=== PATIENT | male | born 1960 | race Caucasian/White ===

== ENCOUNTER 2019-09-10 07:51 | Inpatient (IN) | payer BC ==
[~2019-09-10] VITALS: Ht 182.9 cm; Wt 95.3 kg
--- OUTSIDE RECORDS SUMMARY | 2019-09-10 07:54 | XMS REPORT | Clinical Summary ---
Author Author [facility] Organization [place] [facility] Address Unknown Phone Unavailable Care Team Providers Care Director Broadcast Name Role Phone Johnny De León DO PCP [phone] Allergies No Known Allergies Medications End Date Status Medication Sig Dispensed Refills Start Date Active levothyroxine 175 mcg Take 175 mcg 0 capsule by mouth daily. Active Problems Not on file Encounters Care Team Description Date Type Specialty Wyatt Bob MD Hydronephrosis, unspecified hydronephros is type 01/08/2019 Hospital Radiology Encounter Wyatt Bob MD Hydronephrosis, unspecified hydronephros is type (Primary Dx) 01/01/2019 Office Visit Nephrology Rebecca Perdomo MA Abnormal kidney function (Primary Dx) 10/25/2018 Orders Only Nephrology after 09/09/2018 Family History Medical History Relation Name Comments Bladder Cancer Brother Bladder Cancer Father Hypertension Father Diabetes type II Mother Hypertension Mother Hypothyroidism Mother Diabetes type II Sister Relation Name Status Comments Brother Father Alive Mother Alive Sister Alive Social History Date Tobacco Use Types Packs/Day Years Used Never Smoker Smokeless Tobacco: Never Used Drinks/Week oz/Week Comments Alcohol Use Yes Alcohol Habits Answer Date Recorded How often do you have a drink containing alcohol? Monthly or less 01/01/2019 How many drinks containing alcohol do you have on No t asked a typical day when you are drinking? How often do you have six or more drinks on one Not asked occasion? Sex Assigned at Date Recorded Not on file Industry Job Start Date Occupation Not on file Not on file Not on file Travel End Travel History Travel Start No recent travel history available. Last Filed Vital Signs Reading Time Taken Comments Vital Sign 105/68 01/01/2019 3:15 PM CDT Blood Pressure 79 01/01/2019 3:15 PM CDT Pulse 36.6 C (97.8 F) 01/01/2019 3:15 PM CDT Temperature 16 01/01/2019 3:15 PM CDT Respiratory Rate 97% 01/01/2019 3:15 PM CDT Oxygen Saturation - - Inhaled Oxygen Concentration 96.6 kg (212 lb 14.4 oz) 01/01/2019 3:15 PM CDT Weight 181.6 cm (5' 11.5") 01/01/2019 3:15 PM CDT Height 29.28 01/01/2019 3:15 PM CDT Body Mass Index Plan of Treatment Health Maintenance Due Date Last Done Comments COLONOSCOPY SCREENING 2010 SHINGLES VACCINES (#1) 2010 INFLUENZA VACCINE 11/29/2019 Procedures Comments Procedure Name Priority Date/Time Associated Diag nosis US RENAL Routine 01/08/2019 Hydronephrosis, 7:06 PM CDT unspecified hydronephrosis type CBC WITH PLATELET AND Routine 12/26/2018 Abnormal kidney function DIFFERENTIAL 11:01 AM CDT MICROALBUMIN / CREATININE Routine 12/26/2018 Abno rmal kidney function URINE RATIO 11:01 AM CDT PROTEIN, URINE, RANDOM Routine 12/26/2018 Abnorma l kidney function 11:01 AM CDT URINALYSIS, COMPLETE, Routine 12/26/2018 Abnormal kidney function WITH REFLEX TO CULTURE 11:01 AM CDT PHOSPHORUS LEVEL Routine 12/26/2018 Abnormal kidn ey function 11:01 AM CDT MAGNESIUM LEVEL Routine 12/26/2018 Abnormal kidne y function 11:01 AM CDT BASIC METABOLIC PANEL Routine 12/26/2018 Abnormal kidney function 11:01 AM CDT after 09/09/2018 Results * US Renal (01/08/2019 7:06 PM CDT) Specimen Narrative Performed At EXAMINATION: US RENAL [facility] CLINICAL HISTORY: N13.30 Unspecified hydronephrosis, eval for R hydro COMPARISON: None. TECHNIQUE: Ultrasound evaluation of t he kidneys and bladder. IMPRESSION: 1.The right kidney demonstrates marked hydronephrosis. The right kidney measures 8.6 x 4.4 x 5.1 cm with cortical thinni ng. 2.Left kidney is normal in size and ech ogenicity. No left hydronephrosis. 3.No stones are seen. 4.Urinary bladder is grossly unremarkab le. [facility]-[id number] Procedure Note Hm Interface, Radiology Results Incoming - 01/08/2019 7:12 PM CDT EXAMINATION: US RENAL CLINICAL HISTORY: N13.30 Unspecified hydronephrosis, eval for R hydro COMPARISON: None. TECHNIQUE: Ultrasound evaluation of the kidneys and bladder. IMPRESSION: 1.The right kidney demonstrates marked h ydronephrosis. The right kidney measures 8.6 x 4.4 x 5.1 cm with cortical thinning. 2.Left kidney is normal in size and echo genicity. No left hydronephrosis. 3.No stones are seen. 4.Urinary bladder is grossly unremarkabl e. [facility]-[id number] Performing Organization Address [facility] [place] [place] Ph one Number [facility] [address] [place] [address] * URINALYSIS, COMPLETE, WITH REFLEX TO CULTURE (12/26/2018 11:01 AM CDT) Color, UA YELLOW YELLOW [facility] [place] Appearance CLEAR CLEAR [facility] [place] Specific 1.023 1.001 - 1.035 [facility] gravity, urine [facility] [place] pH, urine < OR = 5.0 5.0 - 8.0 [facility] [place] Glucose, urine NEGATIVE NEGATIVE [facility] [place] Bilirubin, UA NEGATIVE NEGATIVE [facility] [place] Ketones, UA NEGATIVE NEGATIVE [facility] [place] Occult blood, NEGATIVE NEGATIVE [facility] urine [facility] [place] Protein, UA NEGATIVE NEGATIVE [facility] [place] Nitrite, UA NEGATIVE NEGATIVE [facility] [place] Leukocyte NEGATIVE NEGATIVE [facility] esterase, UA [facility] [place] WBC, UA NONE SEEN < OR = 5 /HPF [facility] [place] RBC, UA NONE SEEN < OR = 2 /HPF [facility] [place] Squamous NONE SEEN < OR = 5 /HPF [facility] epithelial [facility]ST[facility] cells, UA [place] Bacteria, UA NONE SEEN NONE SEEN /HPF [facility] [place] Hyaline casts, NONE SEEN NONE SEEN /LPF [facility] UA [facility] [place] Reflex NO CULTURE INDICATED [facility] [place] Specimen Narrative Performed At FASTING:NO [facility] FASTING: NO Resulting Agency Comment Performing Organization Information: Site ID: [id number] Name: [facility] Address: [address] [place] [phone] Director: Martínez Barrett Performing Organization Address City/[facility] Ph one Number [facility] [address] [phone] * Microalbumin / creatinine urine ratio (12/26/2018 11:01 AM CDT) Pathologist [facility] Creatinine, 184 20 - 320 mg/dL [facility] urine, random [facility] [place] Microalbumin, 0.2 See Note: mg/dL [facility] urine Comment: DIAGNOSTICS Reference Range: [place] Reference Range Not established Microalbumin/cr 1 <30 mcg/mg creat [facility] eatinine ratio Comment: DIAGNOSTICS The ADA defines abnormalities GAINES in albumin excretion as follows: Category Result (mcg/mg creatinine) Normal <30 Microalbuminuria 30-299 Clinical albuminuria > OR = 300 The ADA recommends that at least two of three specimens collected within a 3-6 month period be abnormal before considering a patient to be within a diagnostic category. Specimen Urine Narrative Performed At FASTING:NO [facility] FASTING: NO Resulting Agency Comment Performing Organization Information: Site ID: [facility] Name: [facility] Address: [address] [place] [phone] Director: Martínez Barrett Performing Organization Address [facility] one Number [facility] [place] [phone] * Protein, urine, random (12/26/2018 11:01 AM CDT) [facility] Protein, urine 7 5 - 25 mg/dL [facility] random [facility] [place] Specimen Urine Narrative Performed At FASTING:NO [facility] FASTING: NO Resulting Agency Comment Performing Organization Information: Site ID: [facility] Name: [facility] Address: [address] [place] [phone] Director: Martínez Barrett Performing Organization Address [facility] [place] [place] Ph one Number [facility] [address] [phone] * CBC with platelet and differential (12/26/2018 11:01 AM CDT) Pathologist [facility] WBC 6.6 3.8 - 10.8 [facility] Thousand/uL [facility] [place] RBC 4.18 (L) 4.20 - 5.80 [facility] Million/uL [facility] [place] HGB 13.5 13.2 - 17.1 g/dL [facility] [place] HCT 40.0 38.5 - 50.0 % [facility] [place] MCV 95.7 80.0 - 100.0 fL [facility] [place] MCH 32.3 27.0 - 33.0 pg [facility] [place] MCHC 33.8 32.0 - 36.0 g/dL [facility] [place] RDW 13.0 11.0 - 15.0 % [facility] [place] Platelet count 252 140 - 400 [facility] Thousand/uL [facility] [place] MPV 9.6 7.5 - 12.5 fL [facility] [place] Neutrophils, 3,221 1,500 - 7,800 [facility] absolute cells/uL [facility] [place] Lymphocytes, 2,237 850 - 3,900 cells/uL [facility] absolute [facility] [place] Monocytes, 634 200 - 950 cells/uL [facility] absolute [facility] [place] Eosinophils, 475 15 - 500 cells/uL [facility] absolute [facility] [place] Basophils, 33 0 - 200 cells/uL [facility] absolute [facility] [place] Neutrophils 48.8 % [facility] [place] Lymphocytes 33.9 % [facility] [place] Monocytes 9.6 % [facility] [place] Eosinophils 7.2 % [facility] [place] Basophils + RC 0.5 % [facility] [place] Specimen Blood Narrative Performed At FASTING:NO [facility] FASTING: NO Resulting Agency Comment Performing Organization Information: Site ID: [id number] Name: [facility] Address: [address] [place] [phone] Director: Martínez Barrett Performing Organization Address [facility] [place] [place] Ph one Number [facility] [address] [phone] * Phosphorus level (12/26/2018 11:01 AM CDT) Phosphorus 3.5 2.5 - 4.5 mg/dL [facility] [place] Specimen Blood Narrative Performed At FASTING:NO [facility] FASTING: NO Resulting Agency Comment Performing Organization Information: Site ID: [id number] Name: [facility] Address: [address] [place] [phone] Director: Martínez Barrett Performing Organization Address [facility] [place] [place] Ph one Number [facility] [address] [phone] * Magnesium level (12/26/2018 11:01 AM CDT) Magnesium 1.9 1.5 - 2.5 mg/dL [facility] [place] Specimen Blood Narrative Performed At FASTING:NO [facility] FASTING: NO Resulting Agency Comment Performing Organization Information: Site ID: [id number] Name: [facility] Address: [address] [place] [phone] Director: Martínez Barrett Performing Organization Address [facility] one Number [facility] [place] [address] [place] [phone] * Basic metabolic panel (12/26/2018 11:01 AM CDT) [facility] Glucose 96 65 - 139 mg/dL [facility] Comment: DIAGNOSTICS Non-fasting [place] reference interval BUN 23 7 - 25 mg/dL [facility] [place] Creatinine 1.16 0.70 - 1.33 mg/dL [facility] Comment: DIAGNOSTICS For patients >49 years of age, [place] the reference limit for Creatinine is approximately 13% higher for people identified as -Croatian. EGFR Non-Afr. 69 > OR = 60 [facility] Croatian mL/min/1.73m2 [facility] [place] EGFR 80 > OR = 60 [facility] Croatian mL/min/1.73m2 [facility] BUN/creatinine NOT APPLICABLE 6 - 22 (calc) [facility] ratio [facility] [place] Sodium 137 135 - 146 mmol/L [facility] [place] Potassium 4.4 3.5 - 5.3 mmol/L [facility] [place] Chloride 102 98 - 110 mmol/L [facility] [place] CO2 28 20 - 32 mmol/L [facility] [place] Calcium 9.0 8.6 - 10.3 mg/dL [facility] [place] Specimen Blood Narrative Performed At FASTING:NO [facility] FASTING: NO Resulting Agency Comment Performing Organization Information: Site ID: [id number] Name: [facility] Address: [address] [place] [phone] Director: Martínez Barrett Performing Organization Address [facility] one Number [facility] [place] [address] [place] [phone] after 09/09/2018 Insurance Type Payer Benefit Subscriber ID Effective Phone Address Plan / Dates Group PPO BCBS BCBS xxxxxxxxxxxx [id number] CHOICE resent PPO/ROSENAD FRANK PPO Advance Directives For more information, please contact: [phone] 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
[2019-09-10] MEDS ORDERED: ONDANSETRON HCL INJ 2MG/ML 2ML 2 MG/ML VIAL IV STA (07:58)
[2019-09-10] MEDS ORDERED: SODIUM CHLORIDE 0.9% 1000ML 1,000 ML IV STA (07:58)
[2019-09-10] MEDS ORDERED: KETOROLAC TROMETHAMINE 30 MG/ML VIAL IV STA (07:58)
[2019-09-10 08:44] LABS: BASOPHILS # (AUTO) 0.1 (0.0-0.1); BASOPHILS % 0.3 % (0.0-1.0); EOSINOPHILS # (AUTO) 0.2 (0.0-0.4); EOSINOPHILS % 1.5 % (0.0-6.0); HEMATOCRIT 44.2 % (38.2-49.6); HEMOGLOBIN 14.6 g/dL (14.0-18.0); LYMPHOCYTES # (AUTO) 2.5 (1.0-3.2); LYMPHOCYTES % 16.6 % (18.0-39.1); MEAN CORPUSCULAR HEMOGLOBIN 31.5 pg (28-32); MEAN CORPUSCULAR VOLUME 95.5 fL (81-99); MONOCYTES # (AUTO) 1.7 (0.2-0.8); MONOCYTES % 11.1 % (4.4-11.3); NEUTROPHILS # (AUTO) 10.7 (2.1-6.9); NEUTROPHILS % 70.2 % (38.7-80.0); PLATELET COUNT 261 x10e3/uL (140-360); RED BLOOD COUNT 4.63 x10e6/uL (4.3-5.7); RED CELL DISTRIBUTION WIDTH 13.3 % (11.7-14.4)
[2019-09-10 09:02] LABS: INR 0.97; PROTHROMBIN TIME 13.5 seconds (11.9-14.5)
[2019-09-10 09:03] LABS: PARTIAL THROMBOPLASTIN TIME 32.4 seconds (23.8-35.5)
[2019-09-10 09:09] LABS: ALANINE AMINOTRANSFERASE 14 IU/L (0-55); ALBUMIN 3.6 g/dL (3.5-5.0); ALKALINE PHOSPHATASE 55 IU/L (40-150); ANION GAP 14.1 mmol/L (8-16); BLOOD UREA NITROGEN 14 mg/dL (7-26); BUN/CREATININE RATIO 13 (6-25); CALCIUM 8.6 mg/dL (8.4-10.2); CARBON DIOXIDE 26 mmol/L (22-29); CHLORIDE 101 mmol/L (98-107); CREATINE KINASE 84 IU/L (30-200); CREATININE, SERUM 1.11 mg/dL (0.72-1.25); EST GLOMERULAR FILTRATION RATE > 60 ML/MIN (60-); GLUCOSE 117 mg/dL (74-118); POTASSIUM 4.1 mmol/L (3.5-5.1); SODIUM 137 mmol/L (136-145)
[2019-09-10 09:25] LABS: BILIRUBIN,URINE NEGATIVE (NEGATIVE); CLARITY,URINE CLEAR (CLEAR); COLOR,URINE YELLOW (YELLOW); KETONES,URINE NEGATIVE (NEGATIVE); LEUKOCYTE ESTERASE ,URINE NEGATIVE (NEGATIVE); NITRITE,URINE POSITIVE (NEGATIVE); PROTEIN,URINE DIPSTICK NEGATIVE (NEGATIVE); URINE UROBILINOGEN 0.2 mg/dL (0.2 - 1)
[2019-09-10] MEDS ORDERED: SODIUM CHLORIDE 0.9% 50ML 50 ML ONE (09:27)
[2019-09-10] MEDS ORDERED: IOPAMIDOL 370 MG/ML 200 ML INFUS..BTL INJ ONE (09:28)
[2019-09-10 09:33] LABS: EOSINOPHILS % (MANUAL) 3 % (0-7); LYMPHOCYTES % (MANUAL) 13 % (19-48); MONOCYTES % (MANUAL) 6 % (3.4-9.0); NEUTROPHILS % (MANUAL) 72 % (40-74); PLATELET ESTIMATE ADEQUATE; PLATELET MORPHOLOGY COMMENT NORMAL; RBC MORPHOLOGY COMMENT NORMAL
[2019-09-10 09:38] LABS: BACTERIA,URINE FEW /HPF; EPITHELIAL CELLS,URINE RARE /LPF; RBC,URINE 0-5 /HPF (0-5); WBC,URINE (MAN) 0-5 /HPF (0-5)
--- NOTE | 2019-09-10 09:58 | Diagnostic Imaging Report ---
EXAMINATION: CHEST SINGLE (PORTABLE) INDICATION: Abdominal pain COMPARISON: None FINDINGS: LINES/TUBES:None LUNGS:The lungs are well-inflated. No focal consolidation or pulmonary edema. PLEURA:No pleural effusion or pneumothorax. MEDIASTINUM:The cardiomediastinal silhouette appears normal in size and shape. BONES/SOFT TISSUES:No acute osseous injury. ABDOMEN:No free air under the diaphragm. IMPRESSION: No focal pneumonia or pulmonary edema. Signed by: Jordan Melvin MD on 09/10/2019 9:54 AM
--- NOTE | 2019-09-10 10:35 | Diagnostic Imaging Report ---
EXAM: CT Abdomen and Pelvis WITH intravenous contrast INDICATION: Right lower quadrant abdominal pain COMPARISON: None. TECHNIQUE: Abdomen and pelvis were scanned utilizing a multidetector helical scanner from the lung base to the pubic symphysis after administration of IV contrast. Coronal and sagittal reformations were obtained. Routine protocol was performed. Scan was performed during portal venous phase. IV CONTRAST: 100mL of Isovue 370 ORAL CONTRAST: Water RADIATION DOSE: Total DLP: 608 mGy*cm Dose modulation, iterative reconstruction, and/or weight based adjustment of the mA/kV was utilized to reduce the radiation dose to as low as reasonably achievable. FINDINGS: LOWER THORAX: Normal. HEPATOBILIARY: No focal liver lesions. No biliary ductal dilation. Unremarkable gallbladder. SPLEEN: No splenomegaly. PANCREAS: No focal masses or ductal dilatation. ADRENALS: No adrenal nodules. KIDNEYS/URETERS: Severe chronic right hydronephrosis and proximal hydroureter with associated severe cortical thinning. Minimal left hydronephrosis. No urinary calculi. PELVIC ORGANS/BLADDER: Unremarkable. PERITONEUM / RETROPERITONEUM: No free air or fluid. LYMPH NODES: No lymphadenopathy. VESSELS: Scattered atherosclerotic calcifications of the nonaneurysmal abdominal aorta and major branches. GI TRACT: Dilated appendix measures up to 1.4 cm with a distal appendicolith. Substantial right lower quadrant periappendiceal fat stranding and small amount of free fluid. No well-formed drainable abscess. BONES AND SOFT TISSUES: No acute osseous injury. No suspicious lytic or blastic lesions. IMPRESSION: Acute appendicitis. Severe chronic right hydronephrosis with associated severe cortical thinning. Signed by: Jordan Melvin MD on 09/10/2019 10:29 AM
--- NOTE | 2019-09-10 10:42 | Emergency Department Note ---
History of Present Illnes History of Present Illness Chief Complaint: Abdominal Complaints Stated Complaint: STOMACH PAIN RIGHT SIDE History of Present Illness This is a 59 year old male presents with RLQ abd pain x 2 days. Historian: Patient Chief Digital Media Officer Required: No Onset (how long ago): day(s) (2) Location: RLQ Radiation: non-radiation Severity: severe Onset quality: gradual Timing of current episode: constant Progression: worsening Chronicity: new Relieving factors: none Exacerbating factors: movement Associated symptoms: fever/chills (100.4 at home this am), nausea/vomiting (nausea only) Treatments prior to arrival: none Past Medical/Family History Physician Review I have reviewed the patient's past medical and family history. Any updates have been documented here. Past Medical History Recent Fever: Yes Clinical Suspicion of Infectio: No New/Unexplained Change in Ment: No Past Medical History: Hypothyroidism Other Surgery: BILATERAL WRIST SURGERY WISDOM TEETH REMOVED Social History Smoking Cessation: Never Smoker Counseling Performed: No Alcohol Use: Occasional Any Illegal Drug Use: No TB Exposure/Symptoms: No Physically hurt or threatened: No Family History Family history of heart diseas: No Other Last Tetanus: UNKNOWN Any Pre-Existing Lines (PICC,: No Review of Systems Review of Systems Constitutional: as per HPI, fever EENTM: no symptoms Cardiovascular: no symptoms Respiratory: no symptoms Gastrointestinal: as per HPI, abdominal pain, nausea Genitourinary: no symptoms Musculoskeletal: no symptoms Integumentary: no symptoms Neurological: no symptoms Psychological: no symptoms Endocrine: no symptoms Hematological/Lymphatic: no symptoms Review of other systems All other systems reviewed and negative. Physical Exam Related Data Allergies: Coded Allergies: No Known Allergies (Unverified , 09/10/19) Triage Vital Signs Vital Signs Date Time Temp Pulse Resp B/P (MAP) Pulse Ox O2 Delivery O2 Flow Rate FiO2 09/10/19 07:53 100.0 96 18 145/90 99 Physical Exam CONSTITUTIONAL HENT EYES NECK PULMONARY CARDIOVASCULAR GASTROINTESTINAL GENITOURINARY SKIN MUSCULOSKELETAL NEUROLOGICAL PSYCHOLOGICAL Results Laboratory Laboratory WBC 15.27 Lab results reviewed: Yes Laboratory comments LEUKOCYTOSIS, NORMAL CHEM'S, NORMAL CARDIAC MARKERS, NL UA Imaging Y: Yes Impressions FINDINGS: LOWER THORAX: Normal. HEPATOBILIARY: No focal liver lesions. No biliary ductal dilation. Unremarkable gallbladder. SPLEEN: No splenomegaly. PANCREAS: No focal masses or ductal dilatation. ADRENALS: No adrenal nodules. KIDNEYS/URETERS: Severe chronic right hydronephrosis and proximal hydroureter with associated severe cortical thinning. Minimal left hydronephrosis. No urinary calculi. PELVIC ORGANS/BLADDER: Unremarkable. PERITONEUM / RETROPERITONEUM: No free air or fluid. LYMPH NODES: No lymphadenopathy. VESSELS: Scattered atherosclerotic calcifications of the nonaneurysmal abdominal aorta and major branches. GI TRACT: Dilated appendix measures up to 1.4 cm with a distal appendicolith. Substantial right lower quadrant periappendiceal fat stranding and small amount of free fluid. No well-formed drainable abscess. BONES AND SOFT TISSUES: No acute osseous injury. No suspicious lytic or blastic lesions. IMPRESSION: Acute appendicitis. Severe chronic right hydronephrosis with associated severe cortical thinning. Signed by: Jordan Melvin MD on 09/10/2019 10:29 AM Diagnostics Tests Diagnostic test(s) reviewed: Yes Diagnostic comments RLQ ABD PAIN - CONCERN FOR APPENDICITIS BUT DIFFERENTIAL ALSO INCLUDES DIVERTICULITIS, BOWEL OBSTR, ISCHEMIA, MUSCULAR PAIN, COLITIS, RENAL STONE, UTI. CHECK CBC, CHEM'S, UA, CT ABD/PELVIS WITH CONTRAST. IVF'S, PAIN CONTROL, AND ANTIEMETICS ORDERED Procedures 12 Lead ECG Interpretation Chief Digital Media Officer: Interpreted by ED physician Rhythm: sinus rhythm Rate: normal (77) QRS axis: left Conduction: bifascicular block (RBBB & LAFB) ST Segments Normal: Yes T Waves Normal: No T Wave Flattening: all (III, V2, V3) Other findings: no other findings Clinical Impression: abnormal ECG Critical Care Time Subsequent provider I assumed direction of critical care for this patient from another provider of my specialty. Assessment & Plan Assessment & Plan Problems: (1) Appendicitis Reassessment Reassessment I SPOKE WITH DR GUEVARA ([facility] PT) FOR ADMISSION, DR YIN FOR SURGERY - PT LAST ATE YESTERDAY, WILL HOLD NPO, DR YIN WILL DO SURGERY TODAY, LIKELY HOME TOMORROW SO ADMIT TO OBS Depart Disposition: ADMITTED (OBSERVATION) Last Vital Signs Date Time Temp Pulse Resp B/P (MAP) Pulse Ox O2 Delivery O2 Flow Rate FiO2 09/10/19 07:53 100.0 96 18 145/90 99 Medications in the ED Ondansetron HCl 4 mg ONCE STAT IV Last administered on 09/10/19at 08:27; Admin Dose 4 MG; Start 5/13/20 at 07:58; Stop 09/10/19 at 08:04; Status DC Ketorolac Tromethamine 30 mg ONCE STAT IV Last administered on 09/10/19at 08:27; Admin Dose 30 MG; Start 09/10/19 at 07:58; Stop 09/10/19 at 08:04; Sta tus DC Sodium Chloride 1,000 ml @ 0 mls/hr Q0M STAT IV Last administered on 09/10/19at 08:27; Admin Dose 999 MLS/HR; Start 09/10/19 at 07:58; Stop 09/10/19 at 08:04; Status DC JASON DUFFY MD September 10, 2019 08:42
--- OUTSIDE RECORDS SUMMARY | 2019-09-10 10:44 | XMS REPORT | Clinical Summary ---
Author Author [facility] Organization [facility] Address Unknown Phone Unavailable Care Team Providers Care [employer] Operations Specialist Name Role Phone Johnny De León DO PCP [phone] Allergies No Known Allergies Medications End [...] seen. 4.Urinary bladder is grossly unremarkab le. [facility]-[id number] Procedure Note Hm Interface, Radiology Results Incoming [...] seen. 4.Urinary bladder is grossly unremarkabl e. [facility]-[id number] Performing Organization Address [facility] Ph one Number [facility] [address] [place] [address] * URINALYSIS, COMPLETE, WITH REFLEX TO CULTURE (12/26/2018 11:01 AM CDT) Color, UA YELLOW YELLOW [facility] [place] Appearance CLEAR CLEAR [facility] [place] Specific 1.023 1.001 - 1.035 [facility] gravity, urine [facility] [place] pH, urine < OR = 5.0 5.0 - 8.0 [facility] [place] Glucose, urine NEGATIVE NEGATIVE [facility] [place] Bilirubin, UA NEGATIVE NEGATIVE [facility] [place] Ketones, UA NEGATIVE NEGATIVE [facility] [place] Occult blood, NEGATIVE NEGATIVE [facility] urine [facility] [place] Protein, UA NEGATIVE NEGATIVE [facility] [place] Nitrite, UA NEGATIVE NEGATIVE [facility] [place] Leukocyte NEGATIVE NEGATIVE [facility] esterase, UA [facility] [place] WBC, UA NONE SEEN < OR = 5 /HPF [facility] [place] RBC, UA NONE SEEN < OR = 2 /HPF [facility] [place] Squamous NONE SEEN < OR = 5 /HPF [facility] epithelial [facility] cells, UA [place] Bacteria, UA NONE SEEN NONE SEEN /HPF [facility] [place] Hyaline casts, NONE SEEN NONE SEEN /LPF [facility] UA [facility] [place] Reflex NO CULTURE INDICATED [facility] [place] Specimen Narrative Performed At FASTING:NO [facility] FASTING: NO Resulting Agency Comment Performing Organization Information: Site ID: RGA Name: [facility] Address: [address] [place] [phone] Director: Martínez Barrett Performing Organization Address [facility] Ph one Number [facility] [address] [address] * Microalbumin / creatinine urine ratio (12/26/2018 11:01 AM CDT) Pathologist [facility] Creatinine, 184 20 - 320 mg/dL [facility] urine, random [facility] [place] Microalbumin, 0.2 See Note: mg/dL [facility] urine Comment: [facility] Reference Range: [place] Reference Range Not established Microalbumin/cr 1 <30 [...] Agency Comment Performing Organization Information: Site ID: [facility] Name: [facility] Address: [address] [place] [phone] Director: Martínez Barrett Performing Organization Address [facility] one Number [facility] [place] [phone] * Protein, urine, random (12/26/2018 11:01 AM CDT) [facility] Protein, urine 7 5 - 25 mg/dL [facility] random [facility] [place] Specimen Urine Narrative Performed At FASTING:NO [facility] FASTING: NO Resulting Agency Comment Performing Organization Information: Site ID: [facility] Name: [facility] Address: [address] [place] [phone] Director: Martínez Barrett Performing Organization Address [facility] Ph one Number [facility] [address] [address] * CBC with platelet and differential (12/26/2018 11:01 AM CDT) Pathologist [facility] WBC 6.6 3.8 - 10.8 [facility] Thousand/uL [facility] [place] RBC 4.18 (L) 4.20 - 5.80 [facility] Million/uL [facility] [place] HGB 13.5 13.2 - 17.1 g/dL [facility] [place] HCT 40.0 38.5 - 50.0 % [facility] [place] MCV 95.7 80.0 - 100.0 fL [facility] [place] MCH 32.3 27.0 - 33.0 pg [facility] [place] MCHC 33.8 32.0 - 36.0 g/dL [facility] [place] RDW 13.0 11.0 - 15.0 % [facility] [place] Platelet count 252 140 - 400 [facility] Thousand/uL [facility] [place] MPV 9.6 7.5 - 12.5 fL [facility] [place] Neutrophils, 3,221 1,500 - 7,800 [facility] absolute cells/uL [facility] [place] Lymphocytes, 2,237 850 - 3,900 cells/uL [facility] absolute [facility] [place] Monocytes, 634 200 - 950 cells/uL [facility] absolute [facility] [place] Eosinophils, 475 15 - 500 cells/uL [facility] absolute [facility] [place] Basophils, 33 0 - 200 cells/uL [facility] absolute [facility] [place] Neutrophils 48.8 % [facility] [place] Lymphocytes 33.9 % [facility] [place] Monocytes 9.6 % [facility] [place] Eosinophils 7.2 % [facility] [place] Basophils + RC 0.5 % [facility] [place] Specimen Blood Narrative Performed At FASTING:NO [facility] FASTING: NO Resulting Agency Comment Performing Organization Information: Site ID: RGA Name: [facility] Address: [address] [place] [phone] Director: Martínez Barrett Performing Organization Address [facility] Ph one Number [facility] [address] [address] * Phosphorus level (12/26/2018 11:01 AM CDT) Phosphorus 3.5 2.5 - 4.5 mg/dL [facility] [place] Specimen Blood Narrative Performed At FASTING:NO [facility] FASTING: NO Resulting Agency Comment Performing Organization Information: Site ID: RGA Name: [facility] Address: [address] [place] [phone] Director: Martínez Barrett Performing Organization Address [facility] Ph one Number [employer] [address] [address] * Magnesium level (12/26/2018 11:01 AM CDT) Magnesium 1.9 1.5 - 2.5 mg/dL [facility] [place] Specimen Blood Narrative Performed At FASTING:NO [facility] FASTING: NO Resulting Agency Comment Performing Organization Information: Site ID: RGA Name: [facility] Address: [address] [place] [phone] Director: Martínez Barrett Performing Organization Address [facility] one Number [facility] [place] [address] [place] [phone] * Basic metabolic panel (12/26/2018 11:01 AM CDT) [facility] Glucose 96 65 - 139 mg/dL [facility] Comment: DI[facility]NOSTICS Non-fasting [place] reference interval BUN 23 7 - 25 mg/dL [facility] [place] Creatinine 1.16 0.70 - 1.33 mg/dL [facility] Comment: DIAGNOSTICS For patients >49 years of age, [place] the reference limit for Creatinine is approximately 13% higher for people identified as -[place]ese. EGFR Non-Afr. 69 > OR = 60 [facility] [place] mL/min/1.73m2 [facility] [place] EGFR 80 > OR = 60 [facility] [place] mL/min/1.73m2 [facility] BUN/creatinine NOT APPLICABLE 6 - 22 (calc) [facility] ratio [facility] [place] Sodium 137 135 - 146 mmol/L [facility] [place] Potassium 4.4 3.5 - 5.3 mmol/L [facility] [place] Chloride 102 98 - 110 mmol/L [facility] [place] CO2 28 20 - 32 mmol/L [facility] [place] Calcium 9.0 8.6 - 10.3 mg/dL [facility] [place] Specimen Blood Narrative Performed At FASTING:NO [facility] FASTING: NO Resulting Agency Comment Performing Organization Information: Site ID: RGA Name: [facility] Address: [address] [place] [phone] Director: Martínez Barrett Performing Organization Address [facility] one Number [employer] [place] [address] [place] [phone] after 09/09/2018 Insurance Type Payer Benefit Subscriber ID Effective Phone Address Plan / Dates Group PPO BCBS BCBS xxxxxxxxxxxx [id number] CHOICE resent PPO/ROSENDA FRANK PPO Advance Directives For more information, please contact: [phone] Patient Medical Education Coordinator Explanation Type Date Recorded Advance Directives, Living Will and Medical Power of Sales Assistant Displays
--- OUTSIDE RECORDS SUMMARY | 2019-09-10 10:44 | XMS REPORT ---
Author Author [facility] t Organization [facility] Address [address] [place] [address] Phone Unavailable Care Team Providers Care Licensed Sales Assistant Name Role Phone [place] Jamel Johnny PCP [phone] Sheela DUFFY Attphys Unavailable Luther Bob MD Attphys Conor RAE, Rebecca Attphys Unavailable Payers Payer Name Policy Type Policy Number Effective Date Expiration Date S arleen BCBSBCBS CHOICE PPO/FEDERAL EMPL PPOxxxxxxxxxxxx2018-Pre sentPPO xxxxxxxxxxxx 2018 00:00:00 [facility] Problems This patient has no known problems. Allergies, Adverse Reactions, Alerts This patient has no known allergies or adverse reactions. Family History Family Member Diagnosis Comments Start Date Stop Date Source Natural brother Bladder Cancer [facility] Natural father Bladder Cancer [place] [facility] Natural father Hypertension [facility] Natural mother Diabetes type II [place] [facility] Natural mother Hypertension [facility] Natural mother Hypothyroidism [place] [facility] Natural sister Diabetes type II [place] [facility] Social History Social Habit Start Date Stop Date Quantity Comments Source History SDOH Alcohol Std Drinks [facility] [place] [facility] History SDOH Alcohol Binge [facility] [place] [facility] Sex Assigned At [facility] Alcohol intake 2019-01-01 00:00:00 2019-01-01 00:00:00 Current drinker of alcohol (finding) [place] [facility] History SDOH Alcohol Frequency 2019-01-01 00:00:00 2019-01-01 00:00:0 0 2 [facility] Smoking Status Start Date Stop Date Source Never smoker [place] [facility] Medications Ordered Medication Name Filled Medication Name Start Date Stop Da te Current Medication? Ordering Clinician Indication Dosage Frequency Signature (SIG) Comments Components Source levothyroxine 175 mcg capsule 2019-01-01 20:19:57 Yes 175ug QD Take 175 mcg by mouth daily. Marcus Yu Vital Signs Vital Name Observation Time Observation Value Comments Source Systolic blood pressure 2019-01-01 20:15:00 105 mm[Hg] Marcus Yu Diastolic blood pressure 2019-01-01 20:15:00 68 mm[Hg] Marcus Yu Heart rate 2019-01-01 20:15:00 79 /min Marcus Yu Body temperature 2019-01-01 20:15:00 36.56 Jacqu[facility] Respiratory rate 2019-01-01 20:15:00 16 /min [facility] Body height 2019-01-01 20:15:00 181.6 cm Marcus Yu Body weight 2019-01-01 20:15:00 96.571 kg Marcus Yu BMI 2019-01-01 20:15:00 29.28 kg/m2 Marcus Yu Oxygen saturation in Arterial blood by Pulse oximetry 01-01 20:15:00 97 /min Marcus Yu Procedures Procedure Date / Time Performed Performing Clinician Ester BARRERA RENAL 2019-01-09 00:06:50 Joe Guillen odroselia BASIC METABOLIC PANEL 2018-12-26 16:01:00 Wyatt Bob MAGNESIUM LEVEL 2018-12-26 16:01:00 Wyatt Bob PHOSPHORUS LEVEL 2018-12-26 16:01:00 Wyatt Bob URINALYSIS, COMPLETE, WITH REFLEX TO CULTURE 2018-12-26 16:0 1:00 Wyatt Bob PROTEIN, URINE, RANDOM 2018-12-26 16:01:00 Wyatt Bob MICROALBUMIN / CREATININE URINE RATIO 2018-12-26 16:01:00 Wyatt Sheehan CBC WITH PLATELET AND DIFFERENTIAL 2018-12-26 16:01:00 Wyatt Bob Plan of Care Planned Activity Planned Date Details Comments Source Future Scheduled Test [code = ] Future Scheduled Test [code = ] Future Scheduled Test [code = ] Results Test Description Test Time Test Comments Results Result Comments Source CT ABDOMEN/PELVIS W 2019-09-10 10:13:00 [facility] [address] [address] Patient Name: GABBY TAPIA JR MR #: [id number] : 1960 Age/Sex: 59/M Req #: [id number] Adm Physician: Ordered by: JASON DUFFY MD Report #: [id number] Location: ER Room/Bed: Procedure: [id number] CT/CT ABDOMEN/PELVIS W Exam Date: 09/10/19 Exam Time: 952 REPORT STATUS: Signed EXAM: CT Abdomen and Pelvis WITH intravenous contrast INDICATION: Right lower quadrant abdominal pain COMPARISON: None. TECHNIQUE: Abdomen and pelvis were scanned utilizing a multidetector helical scanner from the lung base to the pubic symphysis after administration of IV contrast. Coronal and sagittal reformations were obtained. Routine protocol was performed. Scan was performed during portal venous phase. IV CONTRAST: 100mL of Isovue 370 ORAL CONTRAST: Water RADIATION DOSE: Total DLP: 608 mGy*cm Dose modulation, iterative reconstruction, and/or weight based adjustment of the mA/kV was utilized to reduce the radiation dose to as low as reasonably achievable. FINDINGS: LOWER THORAX: Normal. HEPATOBILIARY: No focal liver lesions. No biliary ductal dilation. Unremarkable gallbladder. SPLEEN: No splenomegaly. PANCREAS: No focal masses or ductal dilatation. ADRENALS: No adrenal nodules. KIDNEYS/URETERS: Severe chronic right hydronephrosis and proximal hydroureter with associated severe cortical thinning. Minimal left hydronephrosis. No urinary calculi. PELVIC ORGANS/BLADDER: Unremarkable. PERITONEUM / RETROPERITONEUM: No free air or fluid. LYMPH NODES: No lympha denopathy. VESSELS: Scattered atherosclerotic calcifications of the nonaneurysmal abdominal aorta and major branches. GI TRACT: Dilated appendix measures up to 1.4 cm with a distal appendicolith. Substantial right lower quadrant periappendiceal fat stranding and small amount of free fluid. No well-formed drainable abscess. BONES AND SOFT TISSUES: No acute osseous injury. No suspicious lytic or blastic lesions. IMPRESSION: Acute appendicitis. Severe chronic right hydronephrosis with associated severe cortical thinning. Signed by: Jadyn Melvin MD on 09/10/2019 10:29 AM Dictated By: JADYN MELVIN MD 1029 Transcribed By: YKLE on 09/10/19 1029 COPY TO: JASON DUFFY MD CHEST SINGLE (PORTABLE) 2019-09-10 09:54:00 [place] [address] Patient Name: GABBY TAPIA JR MR #: [id number] : 1960 Age/Sex: 59/M Req #: [id number] Adm Physician: Ordered by: JASON DUFFY MD Report #: [id number] Location: ER Room/Bed: Procedure: [id number] DX/CHEST SINGLE (PORTABLE) Exam Date: 09/10/19 Exam Time: 924 REPORT STATUS: Signed EXAMINATION: CHEST SINGLE (PORTABLE) INDICATION: Abdominal pain COMPARISON: None FINDINGS: LINES/TUBES:None LUNGS:The lungs are well-inflated. No focal consolidation or pulmonary edema. PLEURA:No pleural effusion or pneu mothorax. MEDIASTINUM:The cardiomediastinal silhouette appears normal in size and shape. BONES/SOFT TISSUES:No acute osseous injury. ABDOMEN:No free air under the diaphragm. IMPRESSION: No focal pneumonia or pulmonary edema. Signed by: Jadyn Melvin MD on 09/10/2019 9:54 AM Dictated By: JADYN MELVIN MD 3 Transcribed By: KYLE on 09/10/19953 COPY TO: JASON DUFFY MD Renal 2019-01-09 00:09:11 Hm Interface , Radiology Results 01/08/2019 7:12 PM CDTEXAMINATION: US RENALCLINICAL HISTORY: N13.30 Unspecified hydronephrosis, eval for R hydroCOMPARISON: None.TECHNIQUE: Ultrasound evaluation of the kidneys and bladder.IMPRESSION:1.The right kidney demonstrates marked hydronephrosis. The right kidney measures 8.6 x 4.4 x 5.1 cm with cortical thinning.2.Left kidney is normal in size and echogenicity. No left hydronephrosis.3.No stones are seen.4.Urinary bladder is grossly unremarkable.[facility]-[id number] [place] [facility] Basic metabolic panel 2018-12-27 17:45:00 Test Item Glucose (test code = 2345-7) 96 mg/dL 65-139 Non-fasting reference interval BUN (test code = 3094-0) 23 mg/dL 7-25 Creatinine (test code = 2160-0) 1.16 mg/dL 0.7-1.33 For patients >49 years of age, the reference limitfor Creatinine is approximately 13% higher for peopleidentified as -[place]ovan. EGFR Non-Afr. [place] (test code = 2775) 69 > OR = 60 mL /min/1.73m2 EGFR (test code = 68909-1) 80 > OR = 60 mL/min/1.73m2 BUN/creatinine ratio (test code = 3097-3) NOT APPLICABLE 6- 22 (donovan c) Sodium (test code = 2951-2) 137 mmol/L 135-146 Potassium (test code = 2823-3) 4.4 mmol/L 3.5-5.3 Chloride (test code = 2075-0) 102 mmol/L 98-110 CO2 (test code = 2027-9) 28 mmol/L 20-32 Calcium (test code = 29080-5) 9.0 mg/dL 8.6-10.3 MARLENI (test code = MARLENI) FASTING:NOFASTING: NO RAC (test code = RAC) Performing Organization Info rmation: Site ID: TIMMY Name: [facility] Address: [address] [place], [place] [id number] Director: Martínez Barrett [facility]2019-08-30 17:45:00* Test Item Value Reference Range Interpretation Comments Magnesium (test code = 28414-6) 1.9 mg/dL 1.5-2.5 MARLENI (test code = MARLENI) FASTING:NOFASTING: NO RAC (test code = RAC) Performing Organization Info rmation: Site ID: TIMMY Name: [facility] Lab Address: [address] [place] [address] Director: Martínez Barrett [facility]2019-08-30 17:45:00* Test Item Value Reference Range Interpretation Comments Phosphorus (test code = 2777-1) 3.5 mg/dL 2.5-4.5 MARLENI (test code = MARLENI) FASTING:NOFASTING: NO RAC (test code = RAC) Performing Organization Info rmation: Site ID: TIMMY Name: [facility] Lab Address: [address] [place], [place] [id number] Director: Martínez Barrett [facility] with platelet and [id number] 17:45:00* Test Item Value Reference Range Interpretation Comments WBC (test code = 6690-2) 6.6 3.8- 10.8 Thousand/uL RBC (test code = 789-8) 4.18 4.20- 5.80 Million/uL L HGB (test code = 718-7) 13.5 g/dL 13.2-17.1 HCT (test code = 4544-3) 40.0 % 38.5-50 MCV (test code = 787-2) 95.7 fL 80-100 MCH (test code = 785-6) 32.3 pg 27-33 MCHC (test code = 786-4) 33.8 g/dL 32-36 RDW (test code = 788-0) 13.0 % 11-15 Platelet count (test code = 777-3) 252 140- 400 Thousand/u L MPV (test code = 776-5) 9.6 fL 7.5-12.5 Neutrophils, absolute (test code = 751-8) 3221 1,500 - 7,80 0 cells/uL Lymphocytes, absolute (test code = 731-0) 2237 850- 3,900 c ells/uL Monocytes, absolute (test code = 742-7) 634 200- 950 cells /uL Eosinophils, absolute (test code = 711-2) 475 15- 500 cell s/uL Basophils, absolute (test code = 704-7) 33 0- 200 cells/u L Neutrophils (test code = 770-8) 48.8 % Lymphocytes (test code = 736-9) 33.9 % Monocytes (test code = 5905-5) 9.6 % Eosinophils (test code = 713-8) 7.2 % Basophils + RC (test code = 706-2) 0.5 % MARLENI (test code = MARLENI) FASTING:NOFASTING: NO RAC (test code = RAC) Performing Organization Info rmation: Site ID: RGA Name: [facility] Address: [address] [place] [phone] Director: Martínez Barrett Lab Interpretation (test code = 53776-1) Abnormal [place] [facility], urine, [id number] 17:45:00* Test Item Value Reference Range Interpretation Comments Protein, urine random (test code = 2888-6) 7 mg/dL 5-25 MARLENI (test code = MARLENI) FASTING:NOFASTING: NO RAC (test code = RAC) Performing Organization Info rmation: Site ID: RGA Name: [facility] Address: [address] [place] [phone] Director: Martínez Barrett [place] [facility] / creatinine urine [id number] 17:45:00* Test Item Value Reference Range Interpretation Comments Creatinine, urine, random (test code = 2161-8) 184 mg/dL 20-320 Microalbumin, urine (test code = 13950-6) 0.2 mg/dL See Note: Reference Range:Reference RangeNot established Microalbumin/creatinine ratio (test code = 9318-7) 1 <30 mcg/mg creat The ADA defines abnormalities in albuminexcretion as follows: Category Result (mcg/mg creatinine) Normal <30Microalbuminuria 30-299 Clinical albuminuria > OR = 300 The ADA recommends that at least two of threespecimens collected within a 3-6 month period beabnormal before considering a patient to bewithin a diagnostic category. MARLENI (test code = MARLENI) FASTING:NOFASTING: NO RAC (test code = RAC) Performing Organization Info rmation: Site ID: RGA Name: [facility] Address: [address] [place] [phone] Director: Martínez Velaz[facility] MethodistURINALYSIS, COMPLETE, WITH REFLEX TO [id number] 17:45:00 * Test Item Value Reference Range Interpretation Comments Color, UA (test code = 5778-6) YELLOW YELLOW Appearance (test code = 5767-9) CLEAR CLEAR Specific gravity, urine (test code = 5811-5) 1.023 1.001-1.0 35 pH, urine (test code = 5803-2) < OR = 5.0 5.0-8.0 Glucose, urine (test code = 90253-8) NEGATIVE NEGATIVE Bilirubin, UA (test code = 5770-3) NEGATIVE NEGATIVE Ketones, UA (test code = 2514-8) NEGATIVE NEGATIVE Occult blood, urine (test code = 5794-3) NEGATIVE NEGATIVE Protein, UA (test code = 76266-9) NEGATIVE NEGATIVE Nitrite, UA (test code = 5802-4) NEGATIVE NEGATIVE Leukocyte esterase, UA (test code = 5799-2) NEGATIVE NEGATIVE WBC, UA (test code = 5821-4) NONE SEEN < OR = 5 /HPF RBC, UA (test code = 07172-7) NONE SEEN < OR = 2 /HPF Squamous epithelial cells, UA (test code = 81721-2) NONE SEEN < OR = 5 /HPF Bacteria, UA (test code = 5769-5) NONE SEEN NONE SEEN /HPF Hyaline casts, UA (test code = 5796-8) NONE SEEN NONE SEEN /LPF Reflex (test code = 630-4) NO CULTURE INDICATED MARLENI (test code = MARLENI) FASTING:NOFASTING: NO RAC (test code = RAC) Performing Organization Info rmation: Site ID: RGA [facility]: [facility] Address: [address] [place] [phone] Director: Martínez Yu
[2019-09-10] MEDS ORDERED: ONDANSETRON HCL INJ 2MG/ML 2ML 2 MG/ML VIAL IV PRN ×2 (10:45→15:00)
[2019-09-10] MEDS ORDERED: SODIUM CHLORIDE 0.9% 1000ML 1,000 ML IV SCH (10:45)
[2019-09-10] MEDS ORDERED: MORPHINE SULFATE INJ 4 MG/ML INJ 1ML IV PRN (10:45)
--- NOTE | 2019-09-10 13:09 | Consultation ---
DATE OF CONSULTATION: 09/10/2019 HISTORY OF PRESENT ILLNESS: The patient is a 59-year-old male who presents with complaints of abdominal pain. He says he had pain for two days started in the epigastrium that became localized in the right lower quadrant with associated nausea. He came to the emergency room. Evaluation of CT scan of the abdomen and pelvis revealed findings suggestive of acute appendicitis. PAST MEDICAL HISTORY: Significant for hypothyroidism for which he takes Levoxyl. PAST SURGICAL HISTORY: The only previous surgery was bilateral wrist surgery for fractured wrists, removal of wisdom teeth. ALLERGIES: HE HAS NO KNOWN ALLERGIES. FAMILY HISTORY: Noncontributory. SOCIAL HISTORY: The patient does not smoke cigarettes, does not drink alcohol. REVIEW OF SYSTEMS: As stated above, otherwise was negative. PHYSICAL EXAMINATION: GENERAL: The patient is awake and alert, in no distress. VITAL SIGNS: Normal. HEENT: Sclerae is not icteric. NECK: Supple. No masses. LUNGS: Equal breath sounds, clear bilaterally. CARDIAC: Regular rate and rhythm with no murmur. Abdomen: Tender in the right lower quadrant with signs of peritonitis localized to the right lower quadrant. There is no mass. There is no organomegaly. EXTREMITIES: Have no edema. Pulses are palpable. NEUROLOGIC: Intact. LABORATORY TESTS: White blood cell count 15.3, hemoglobin and hematocrit are normal. Chemistries were essentially normal. ASSESSMENT: A 59-year-old male with acute appendicitis, he will benefit from appendectomy, which I planned to schedule for today. PLAN: Procedure was explained to the patient including risks, benefits and alternatives. He understands, he has had the opportunity to ask questions. He was aware of the possible need for open surgery. Thank you for asking me to see Mr. Jett. MD JIMMY Raman/DE /[id number]
[2019-09-10] MEDS: PIPER-TAZ 3.375 GM 50 ML IV SCH ×3 (13:21→23:20)
[2019-09-10] MEDS ORDERED: BUPIVACAINE HCL 0.5% INJ 30 ML VIAL INJ ONE (14:10)
[2019-09-10] MEDS ORDERED: MORPHINE SULFATE 5 MG/ML VIAL IV PRN (15:00)
[2019-09-10 15:51] VITALS: BP 111/74
--- NOTE | 2019-09-10 15:51 | NUR ---
The pt. was received from [facility] sp Appendectomy to room 107 via stretcher. The pt is sleepy but responds when awakened.The fluids are continued until the pt is eating and drinking. The pt. currently denies pain or discomfort at this time.
[2019-09-10 15:52] VITALS: BP 111/74
--- NOTE | 2019-09-10 16:29 | Operative Report ---
DATE OF PROCEDURE: 09/10/2019 SURGEON: Cuco Gordon MD PREOPERATIVE DIAGNOSIS: Acute appendicitis. POSTOPERATIVE DIAGNOSIS: Acute appendicitis with contained perforation. PROCEDURES: Diagnostic laparoscopy, laparoscopic appendectomy. COORDINATE MEASURING MACHINE PROGRAMMER: None. ANESTHESIA: General. INDICATIONS AND FINDINGS: A 59-year-old male, who presented with 2-day history of abdominal pain, localized to right lower quadrant. At Surgery, the patient was found acutely inflamed appendix with contained perforation with a fecalith. TECHNIQUE: After adequate general endotracheal anesthesia, the patient is in supine position, and the abdomen was prepped and draped in a sterile fashion with ChloraPrep solution. Skin in the umbilicus was infiltrated with 0.5% Marcaine. Incision was made in the umbilicus. Abdominal wall was elevated and Veress needle was introduced. Pneumoperitoneum was then created. A 10 mm trocar and cannula was then passed through the umbilical wound. Laparoscopic camera was introduced. Initial laparoscopy revealed inflammatory process in right lower quadrant. A 12 mm trocar and cannula were placed suprapubically and a 5 mm trocar and cannula were placed in the right upper quadrant, these were placed under direct vision. Cecum was elevated. There was considerable inflammation around the cecum. There was adherent small bowel, which was dissected away from the acutely inflamed appendix. There was some peritoneal attachments to the appendix, which were divided with the Harmonic Scalpel. The mesoappendix was also divided with the Harmonic Scalpel. Freeing the appendix completely, it shows free all the way to its base. The base of the appendix was then divided close to the cecum with the Endo-JOSE ANGEL stapler freeing the appendix. The appendix was then placed into an Endopouch and brought out through the suprapubic cannula. Care was taken to not touch the abdominal wall. There was noted to be a contained perforation of the appendix. There the appendectomy was inspected for hemostasis, which was seen to be adequate, it was irrigated with saline. All fluid aspirated and inspected for hemostasis, which was seen to be adequate. Instruments and cannulas were then removed. Pneumoperitoneum was evacuated. Wounds were then closed. Fascia in the umbilical and suprapubic wounds closed with 0 Vicryl. Skin to all wounds closed with abilio. Sterile dressings applied to each wound. The patient tolerated the procedure well. Estimated blood loss was 10 mL. There were no complications. All counts were correct. The patient was taken to the recovery room in satisfactory condition. MD JIMMY Raman/DE /[id number] cc: Johnny Tamez MD
[2019-09-10] MEDS ORDERED: LEVOXYL175 MCG (18:07)
[2019-09-10] MEDS ORDERED: ONDANSETRON HCL INJ 2MG/ML 2ML 2 MG/ML VIAL ONE (18:30)
[2019-09-10] MEDS ORDERED: DEXAMETHASONE SOD PHOS INJ 4 MG/ML VIAL ONE (18:30)
[2019-09-10] MEDS ORDERED: PROPOFOL IV EMULSION 10 MG/ML 20 ML VIAL ONE (18:30)
[2019-09-10] MEDS ORDERED: ROCURONIUM BROMIDE 10 MG/ML 5ML VIAL IV ONE (18:30)
[2019-09-10] MEDS ORDERED: LIDOCAINE HCL 2% LOCAL INJ 5 ML SDV VIAL INJ ONE (18:30)
[2019-09-10] MEDS ORDERED: SEVOFLURANE INHAL SOLN 250 ML PEN BTL ONE (18:30)
[2019-09-10] MEDS ORDERED: FENTANYL CITRATE/PF 100MCG/2 ML INJ ONE (19:04)
[2019-09-10] MEDS: SODIUM CHLORIDE 0.9% 1000ML 1,000 ML IV SCH ×2 (19:14→23:11)
[2019-09-10] MEDS: HYDROCODONE/APAP 5MG-325MG TAB PO PRN (19:14)
[2019-09-10 20:00] VITALS: BP 119/70
--- NOTE | 2019-09-10 20:53 | NUR ---
RECHECKED TEMPERATURE 100.8. STABLE CONDITION. NO ADVERSE SIGNS OR SYMPTOMS. NOTIFIED RESPIRATORY NEED OF IS.
--- NOTE | 2019-09-10 20:58 | NUR ---
SPOKE TO RESPIRATORY REGARDING NEED FOR IS.
--- NOTE | 2019-09-10 21:35 | NUR ---
PICKED UP TELEMETRY BOX FROM MACHINE STUFFER AND APPLIED TO PT.
--- NOTE | 2019-09-10 23:16 | NUR ---
SPOKE TO TRAVIS BECKHAM REGARDING FEVER. NOTIFIED THAT NEW ORDERS WILL BE PLACED BY TAXATION AGENT.
--- NOTE | 2019-09-10 23:19 | NUR ---
SPOKE TO RESPIRATORY REGARDING NEED FOR IS.
--- NOTE | 2019-09-10 23:35 | NUR ---
PROVIDED PT WITH I.S. TEACH BACK METHOD PROVIDED. PT ABLE TO ACHIEVE 2000ML WITH GOAL OF 2900ML. PT VERBALIZED UNDERSTANDING OF NEED TO USE I.S. Q1H X10 BREATHS WHILE AWAKE.
[2019-09-11] VITALS (7 sets, daily range): BP systolic 116–172; BP diastolic 72–95
[2019-09-11] MEDS: HYDROCODONE/APAP 5MG-325MG TAB PO PRN ×2 (00:27→04:31)
--- NOTE | 2019-09-11 00:57 | History and Physical ---
PRIMARY CARE PHYSICIAN: Johnny De León DO. CONSULTING PHYSICIAN: Cuco Gordon MD CHIEF COMPLAINT: Abdominal pain. HISTORY OF PRESENT ILLNESS: Mr. Jett is a 59-year-old male with central abdominal pain "stomach pain" radiating to the right side, which increased in severity for two days. He was also having chills and fever and denies having any nausea, vomiting, or diarrhea. He denies sick contacts or recent travel. PAST MEDICAL HISTORY: Hypothyroidism. Hydronephrosis on the right kidney with poor renal function, but left kidney function 100%. Chronic sinus drainage. PAST SURGICAL HISTORY: Bilateral wrist surgery for fractures of the wrist and wisdom teeth removal. FAMILY HISTORY: Diabetes mellitus in sister, niece, and mother. SOCIAL HISTORY: Denies previous history of tobacco use, alcohol use, or illicit drug use. He lives with his . 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 ALLERGIES: NO KNOWN ALLERGIES. MEDICATIONS: At home, he takes Levoxyl 175 mcg daily for hypothyroidism, we will replace with 150 mcg of Synthroid as this is formulary. REVIEW OF SYSTEMS: A 14-point review of systems completed and within normal limits except for the following; CONSTITUTIONAL: He did have chills and fever 100.4 at home this morning. GENITOURINARY: Mild hematuria. GASTROINTESTINAL: Right lower quadrant pain for two days. Ate soup all day yesterday, had nausea this morning. Currently abdominal pain 5-6 on a scale of 0-10. Splinting does help the pain and he is taking oral pain medication. Last bowel movement 09/08. MUSCULOSKELETAL: Chronic knee pain. OBJECTIVE: VITAL SIGNS: Temperature 98.9, T-max 100.0, heart rate 78, blood pressure 147/95, respirations 16, oxygen saturation 98% on room air. Height 6 feet 0, weight 210 pounds. BMI 28.47. GENERAL: Lying supine in bed. LUNGS: Clear to auscultation. Respiratory pattern even and nonlabored on room air. HEENT: EOMI. NECK: Supple. No lymphadenopathy, thyromegaly, or JVD noted. CARDIOVASCULAR: Regular rate and rhythm without murmur. He has lactated Ringer's infusing at 125 mL an hour into peripheral IV. ABDOMEN: Bowel sounds are positive. Abdomen slightly tender to gentle palpation. He has trocar surgical sites with Band-Aids. At the umbilicus, he has two visible abilio. Area is clean, dry, intact. No drainage. EXTREMITIES: Without pitting edema. No clubbing, cyanosis, or marked swelling. No signs or symptoms of DVT. NEUROLOGICAL: GCS 15. Nonfocal. LABORATORY DATA: WBC 15.27, hemoglobin 14.6, hematocrit 44.2, platelets 261. PT 13.5, INR 0.97, PTT 32.4. Sodium 137, potassium 4.1, chloride 101, CO2 of 26, BUN 14, creatinine 1.11, GFR greater than 60, glucose 117, calcium 8.6, total bilirubin 0.8, AST 16, ALT 14, alkaline phosphatase 55, creatine kinase 84, CK-MB 0.9, troponin I 0.001. Total protein 7.3, albumin 3.6. Urinalysis within normal limits generally, but nitrite positive, leukocyte esterase negative, few urine bacteria, rare epithelial cells. Urine culture and two blood cultures with results pending. IMAGING: Another 12-lead ECG showed sinus rhythm with bifascicular block (RBBB and LAFB). CT of the abdomen and pelvis showed acute appendicitis. Severe chronic right hydronephrosis with associated severe cortical thinning. Chest x-ray showed no focal pneumonia or pulmonary edema. ASSESSMENT AND PLAN: 1. Acute abdominal pain, acute appendicitis with contained perforation, now status post laparoscopic appendectomy on 09/[address] Gordon. Continue pain control. He is on Zosyn IV q.6 hours. IV fluids should be switched from LR to normal saline 125 mL an hour. Overall, the patient is doing well, may be able to be discharged tomorrow. Surgery continues to follow. 2. Hypothyroidism. Home medication Levoxyl non-formulary, we will switch to Synthroid 150 mcg daily. 3. Hydronephrosis, right kidney. Creatinine 1.11, estimated GFR greater than 60. Monitor renal function. 4. Right bundle branch block and left anterior fascicular block. Monitor telemetry. 5. Possible urinary tract infection, POA, with hematuria. UA was positive for nitrites. Await final urine culture and sensitivity results. Continue IV fluid normal saline at 125 mL an hour. 6. Prophylaxis, oral Protonix. 7. H and P, time spent 60 minutes. Billing code [id number]. Dictated by Jayden An, ROOF MECHANIC MD LORNE Huffman/DE /[id number]
--- NOTE | 2019-09-11 01:28 | NUR ---
SPOKE TO TRAVIS BECKHAM REGARDING TEMPERATURE. NOTIFIED ORDERS WILL BE PLACED BY ELECTRONIC ASSEMBLER.
[2019-09-11] MEDS: ACETAMINOPHEN 325 MG TAB PO PRN ×3 (02:38→20:50)
[2019-09-11] MEDS: PIPER-TAZ 3.375 GM 50 ML IV SCH ×4 (05:23→23:25)
[2019-09-11 05:47] LABS: BASOPHILS % 0.2 % (0.0-1.0); EOSINOPHILS # (AUTO) 0.1 (0.0-0.4); EOSINOPHILS % 0.5 % (0.0-6.0); HEMATOCRIT 38.8 % (38.2-49.6); LYMPHOCYTES % 12.8 % (18.0-39.1); MEAN CORPUSCULAR HGB CONC 33.5 g/dL (31-35); MEAN CORPUSCULAR VOLUME 95.6 fL (81-99); MONOCYTES # (AUTO) 1.1 (0.2-0.8); MONOCYTES % 6.8 % (4.4-11.3); NEUTROPHILS # (AUTO) 12.5 (2.1-6.9); NEUTROPHILS % 79.3 % (38.7-80.0); PLATELET COUNT 220 x10e3/uL (140-360); RED BLOOD COUNT 4.06 x10e6/uL (4.3-5.7); RED CELL DISTRIBUTION WIDTH 13.4 % (11.7-14.4)
[2019-09-11] MEDS ORDERED: LEVOTHYROXINE SODIUM 100 MCG TAB PO SCH (06:00)
[2019-09-11 06:06] LABS: ALANINE AMINOTRANSFERASE 13 IU/L (0-55); ALBUMIN 2.8 g/dL (3.5-5.0); ALBUMIN/GLOBULIN RATIO 0.8 (0.8-2.0); ALKALINE PHOSPHATASE 52 IU/L (40-150); ANION GAP 11.8 mmol/L (8-16); BLOOD UREA NITROGEN 11 mg/dL (7-26); BUN/CREATININE RATIO 9 (6-25); CALCIUM 8.1 mg/dL (8.4-10.2); CARBON DIOXIDE 23 mmol/L (22-29); CHLORIDE 104 mmol/L (98-107); EST GLOMERULAR FILTRATION RATE > 60 ML/MIN (60-); GLUCOSE 122 mg/dL (74-118); POTASSIUM 3.8 mmol/L (3.5-5.1); SODIUM 135 mmol/L (136-145)
[2019-09-11 06:27] LABS: CHOL/HDL RATIO 2.6 (3.9-4.7); CHOLESTEROL 138 MD/DL (0-199); HDL CHOLESTEROL 53 MG/DL (40-60); LDL CHOLESTEROL 75 MG/DL (60-130); MAGNESIUM 1.6 MG/DL (1.3-2.1); PHOSPHORUS 2.6 MG/DL (2.3-4.7); TRIGLYCERIDES 48 MG/DL (0-149)
[2019-09-11 06:28] LABS: LIPASE < 4 U/L (8-78)
--- NOTE | 2019-09-11 07:00 | NUR ---
REPORT GIVEN TO DAYSVTFT NURSE. RESTING IN BED. AAOX3. NO SIGNS OF IV INFILTRATION. SR UPX2. BED LOCKED AND IN LOW POSITION. CALL LIGHT WITHIN REACH.
[2019-09-11] MEDS: PANTOPRAZOLE SOD 40 MG TABEC PO SCH (07:18)
--- NOTE | 2019-09-11 07:19 | NUR ---
The pt. comp of reflux nd bad taste in mouth and was provided protonix and requested mint. Coughing up cloudy phlegm.
[2019-09-11] MEDS ORDERED: MAGNESIUM SULFATE 2GM/50ML 50 ML IV ONE (10:45)
[2019-09-11] MEDS: SODIUM CHLORIDE 0.9% 1000ML 1,000 ML IV SCH ×2 (10:49→20:50)
--- NOTE | 2019-09-11 15:00 | NUR ---
Call placed to the as per reported buy the transferring nurse for dc orders.
[2019-09-11] MEDS: DOCUSATE SODIUM 100 MG CAP PO SCH (16:42)
[2019-09-11] MEDS: ONDANSETRON HCL 4 MG ORAL DISINTEGRATING TAB PO PRN (16:42)
--- NOTE | 2019-09-11 19:13 | NUR ---
Report to the oncoming nurse.
[2019-09-11] MEDS: HYDRALAZINE HCL 20 MG/ML VIAL IV PRN (20:50)
--- NOTE | 2019-09-11 22:10 | NUR ---
PT AMBULATING IN HARVEY, SLOW STEADY GAIT NOTED.
--- NOTE | 2019-09-11 22:15 | NUR ---
SPOKE WITH DIGITAL CONTENT PRODUCER SHANI BECKHAM REGARDING PT REPORTS UNABLE TO URINATE SINCE THIS MORNING WITH MULTIPLE ATTEMPTS AFTER BUT ALL WERE UNSUCCESSFUL, PT REPORTS WHEN HE LAYS FLAT HE FEELS NAUSEATED. NEW ORDERS RECEIVED TO BLADDER SCAN PATIENT AND IF RETAINING >300ML INSERT SANCHEZ CATHETER.
--- NOTE | 2019-09-11 23:16 | Progress Note ---
DATE: 09/11/2019 SUBJECTIVE: The patient is lying supine in bed, attempting to rest. Per RN, no BM today and minimal pain. The patient confirms he has had 2 episodes of nausea and vomiting with green/brown emesis today. He states he did eat some yogurt and granola today, otherwise not eating much. Abdominal pain currently 1 to 2 on a scale of 0 to 10. Denies chills. He does have insomnia and complains of being an uncomfortable in bed. OBJECTIVE: VITAL SIGNS: Temperature 99.5, T-max 102.2, heart rate 97, blood pressure 135/75, respirations 20, oxygen saturation 100% on room air. GENERAL: Supine, alert, and oriented. LUNGS: Clear. Diminished bases. Respirations even and nonlabored. HEENT: EOMI. NECK: Supple. CARDIOVASCULAR: Regular rate and rhythm without murmur. He has normal saline infusing at 100 mL an hour into a peripheral IV. ABDOMEN: Bowel sounds are positive. Abdomen is tender to gentle palpation. His trocar surgical sites with Band-Aids covering without drainage. At the umbilicus, he has 2 visible abilio, areas are clean, dry, and intact. No guarding. EXTREMITIES: No pitting edema. No clubbing, cyanosis, or marked swelling. No signs of DVT. NEUROLOGIC: GCS 15. Nonfocal. MEDICATIONS: Reviewed. LABORATORY DATA: WBC 15.74, hemoglobin 13, hematocrit 38.8, and platelets 220. Sodium 135, potassium 3.8, chloride 104, CO2 of 23, BUN 11, creatinine 1.2, estimated GFR greater than 60, glucose 122. Hemoglobin A1c 5.4%. Calcium 8.1, phosphorus 2.6, magnesium 1.6, total bilirubin 0.8, AST 14, ALT 13, alkaline phosphatase 52, total bilirubin 6.2, albumin 2.8, triglycerides 48, cholesterol 138, LDL 75, HDL 53, lipase less than 4, TSH 12.79. No growth from urine culture per preliminary report. No growth after 24 hours from 2 blood cultures. No new imaging studies. ASSESSMENT AND PLAN: 1. Acute abdominal pain, acute appendicitis with contained perforation, now status post laparoscopic appendectomy on 09/[address] Gordon. Continue pain control. Case discussed with Dr. Gordon. Continue IV antibiotic of Zosyn IV q.6 hours. Continue normal saline IV fluids. Await improvement in WBCs. T-max 102.2. 2. Hypothyroidism. TSH elevated at 12.79. Home medication Levoxyl nonformulary and was switched to Synthroid 150 mcg daily, however, we will increase this dose. 3. Hydronephrosis, right kidney, creatinine 1.2 (1.11) with estimated GFR greater than 60. Monitor renal function. 4. Acute hypomagnesemia. Magnesium 1.6, repleted with 2 g of magnesium sulfate IV today. 5. Right bundle-branch block and left anterior fascicular block. Monitor telemetry. 6. Possible acute urinary tract infection, present on admission with hematuria. UA was positive for nitrites. We will await final culture and sensitivity results. Continue IV fluids. 7. Prophylaxis Protonix. Time spent 35 minutes. Billing code [id number]. Dictated by Jayden An NP MD JAY HuffmanP/VLADIMIRL /[id number]
--- NOTE | 2019-09-11 23:50 | NUR ---
WENT TO PERFORM BLADDER SCAN, PT REPORTS WANTS TO TRY ONE MORE TIME TO USE BATHROOM. SO PATIENT IS GOING TO TAKE A WALK AND WHEN HE GETS BACK WILL ATTEMPT TO URINATE, IF UNSUCCESSFUL WILL ALLOW THE BLADDER SCAN AND SANCHEZ INSERTION IF NEEDED.
[2019-09-12] VITALS (9 sets, daily range): BP systolic 112–175; BP diastolic 58–100
[2019-09-12] MEDS: ONDANSETRON HCL 4 MG ORAL DISINTEGRATING TAB PO PRN ×3 (00:20→09:01)
--- NOTE | 2019-09-12 00:25 | NUR ---
AFTER AMBULATING IN HARVEY PT WAS ABLE TO URINATE A SMALL AMOUNT. BLADDER SCAN PERFORMED. PT NOTED TO HAVE 269ML RETAINING. ORDERS TO PLACE SANCHEZ IF GREATER THAN 300. WILL CONTINUE TO MONITOR. PT REQUESTING TO SLEEP. PT ASSISTED TO RECLINER WITH CALL LIGHT WITHIN REACH. SIDE TRAY WITHIN REACH.
--- NOTE | 2019-09-12 04:12 | NUR ---
ALERTED TO PATIENTS ROOM BY CALL LIGHT. UPON ENTERING ROOM PATIENT FOUND SITTING ON SIDE OF BED. AAOX3, RR EVEN AND NON-LABORED, ON ROOM AIR. PT REPORTS WAKING UP AND JUST VOMITING GREEN BILE. LEFT PATIENTS ROOM TO GET NEW GOWN FOR PATIENT AND PATIENTS BATHROOM CALL LIGHT BEGAN TO SOUND. PT FOUND STANDING AT SINK WASHING FACE AND A LARGE AMOUNT OF GREEN BILE IS NOTED INTO AND SURROUNDING TOILET. PT PERFORMED ORAL CARE. PT NOW STATES HE FEELS HE NEEDS TO HAVE A BM. PT ASSISTED TO TOILET. EMESIS BAG PROVIDED TO PT.
--- NOTE | 2019-09-12 04:18 | NUR ---
PAGE PLACED FOR MD YIN FOR PT STATUS CHANGE. WAITING FOR CALLBACK.
[2019-09-12] MEDS: PIPER-TAZ 3.375 GM 50 ML IV SCH ×4 (05:20→23:19)
[2019-09-12 05:36] LABS: BASOPHILS % 0.2 % (0.0-1.0); EOSINOPHILS % 0.2 % (0.0-6.0); HEMATOCRIT 41.8 % (38.2-49.6); HEMOGLOBIN 13.8 g/dL (14.0-18.0); LYMPHOCYTES # (AUTO) 1.4 (1.0-3.2); LYMPHOCYTES % 7.1 % (18.0-39.1); MEAN CORPUSCULAR HEMOGLOBIN 31.9 pg (28-32); MEAN CORPUSCULAR VOLUME 96.8 fL (81-99); MONOCYTES # (AUTO) 1.4 (0.2-0.8); MONOCYTES % 7.2 % (4.4-11.3); NEUTROPHILS # (AUTO) 16.7 (2.1-6.9); NEUTROPHILS % 84.4 % (38.7-80.0); PLATELET COUNT 247 x10e3/uL (140-360); RED BLOOD COUNT 4.32 x10e6/uL (4.3-5.7); RED CELL DISTRIBUTION WIDTH 13.1 % (11.7-14.4)
[2019-09-12] MEDS: HYDRALAZINE HCL 20 MG/ML VIAL IV PRN (05:42)
[2019-09-12] MEDS: LEVOTHYROXINE SODIUM 100 MCG TAB PO SCH (05:47)
[2019-09-12 05:52] LABS: ANION GAP 13.7 mmol/L (8-16); BLOOD UREA NITROGEN 11 mg/dL (7-26); BUN/CREATININE RATIO 11 (6-25); CALCIUM 8.9 mg/dL (8.4-10.2); CARBON DIOXIDE 22 mmol/L (22-29); CHLORIDE 101 mmol/L (98-107); CREATININE, SERUM 1.03 mg/dL (0.72-1.25); EST GLOMERULAR FILTRATION RATE > 60 ML/MIN (60-); GLUCOSE 148 mg/dL (74-118); MAGNESIUM 1.8 MG/DL (1.3-2.1); POTASSIUM 3.7 mmol/L (3.5-5.1); SODIUM 133 mmol/L (136-145)
--- NOTE | 2019-09-12 06:40 | NUR ---
PT REMOVED TELEMETRY AND IS REFUSING TO WEAR IT. SPOKE WITH JOHNATHAN HERNADEZ NP OK TO DISCONTINUE TELEMETRY.
[2019-09-12] MEDS ORDERED: MORPHINE SULFATE INJ 4 MG/ML INJ 1ML IV PRN (06:45)
[2019-09-12] MEDS ORDERED: KETOROLAC TROMETHAMINE 30 MG/ML VIAL IV PRN (06:45)
--- NOTE | 2019-09-12 07:05 | NUR ---
RCD PT AT BED PT IS ALERT AND ORIENTED PT RESTING ON BED IV PATENT VOIDED THIS MORNING PT NPO BED LOW AND LOCKED CALL LIGHT IN REACH
--- NOTE | 2019-09-12 07:11 | NUR ---
REPORT GIVEN TO [facility] NURSE. AAOX3. RESTING IN BED. BED LOCKED AND IN LOW POSITION. CALL LIGHT WITHIN REACH. NO SIGNS OF IV INFILTRATION. BED ALARM ACTIVATED.
--- NOTE | 2019-09-12 07:13 | NUR ---
REPORT GIVEN TO [facility] NURSE. AAOX3. RESTING IN BED. BED LOCKED AND IN LOW POSITION. CALL LIGHT WITHIN REACH. NO SIGNS OF IV INFILTRATION. BED ALARM ACTIVATED.
[2019-09-12] MEDS ORDERED: METOPROLOL TARTRATE INJ 1 MG/ML VIAL IV PRN (07:15)
[2019-09-12] MEDS ORDERED: SODIUM PHOSPHATE 3 MMOL/ML INJ IV ONE (07:15)
[2019-09-12] MEDS: PANTOPRAZOLE SOD 40 MG TABEC PO SCH (07:30)
[2019-09-12] MEDS ORDERED: SODIUM PHOSPHATE 10 MMOL in SODIUM CHLORIDE 0.9% 250ML 250 ML IV ONE (08:00)
[2019-09-12] MEDS: DOCUSATE SODIUM 100 MG CAP PO SCH ×2 (09:00→16:34)
[2019-09-12] MEDS: SODIUM CHLORIDE 0.9% 1000ML 1,000 ML IV SCH ×3 (10:00→16:34)
--- NOTE | 2019-09-12 10:00 | NUR ---
PT RESTING ON BED NO SIGNS OF ANY DISTRESS NOTED HE VOIDED
[2019-09-12] MEDS ORDERED: ACETAMINOPHEN 1000 MG/100 ML IV PRN (11:45)
--- NOTE | 2019-09-12 12:00 | NUR ---
PT RESTING ON BED NO PAIN OR NO VOMITIND ,HE VOIDED FAMILY AT BED SIDE
--- NOTE | 2019-09-12 16:50 | NUR ---
PT HAD SMALL BOWEL MOVEMENT
--- NOTE | 2019-09-12 18:43 | NUR ---
PT SITTING ON THE RECLINER NO PAIN ,NO VOMITING ,NO FEVER FAMILY AT BED SIDE BED SIDE REPORT GIVEN TO ONCOMING NURSE
--- NOTE | 2019-09-12 18:49 | NUR ---
PTS WIF SAID SHE CANNOT DRIVE TO HOME BECAUSE OF FLOODING NOTIFIED THE RIVETER SHE NEED TO GET THE [place] WHERE SHE LIVE THEN SHE TALKED TO RIVETER SHE AGREED TO STAY WITH PT
--- NOTE | 2019-09-12 20:00 | NUR ---
PATIENT IS IN STABLE CONDITION AOX4, NO SIGNS OF DISTRESS NOTED. IV FLUIDS ARE RUNNING AT ORDERED RATE AND PATIENT VOICES PAIN AT A LEVEL OF 2 AND WAS MEDICATED ORDERED. PATIENT PREVIOUSLY AMBULATED UP AND DOWN THE HALLS SAFELY WITH . PATIENT IS NOW RESTING COMFORTABLY IN RECLINER, CALL LIGHT IS WITHIN REACH, WILL CONTINUE TO MONITOR.
[2019-09-13] VITALS (8 sets, daily range): BP systolic 137–147; BP diastolic 81–93
--- NOTE | 2019-09-13 02:46 | Progress Note ---
DATE: 09/12/2019 SUBJECTIVE: The patient is lying supine in a recliner at bedside. States, he still has a dull ache, but no abdominal pain. He is passing some gas. Denies chills. No vomiting. Small BM today. MEDICATIONS: Reviewed. OBJECTIVE: VITAL SIGNS: Temperature 100.0, heart rate 110, blood pressure 125/71, respirations 18, and oxygen saturation 98% on room air. GENERAL: Supine, asleep. Easily arousable. LUNGS: Clear to auscultation with diminished bases. Respirations even and nonlabored. HEENT: EOMI. NECK: Supple. CARDIOVASCULAR: Regular rate and rhythm. No murmur. Normal saline, infusing at 100 mL an hour into peripheral IV. ABDOMEN: Bowel sounds positive. Tender to gentle palpation. Trocar surgical sites with Band-Aids covering without drainage. Two visible abilio at the umbilicus. No guarding. EXTREMITIES: Without pitting edema. Clubbing, cyanosis, or signs of DVT. NEUROLOGICAL: GCS 15. Nonfocal. LABORATORY DATA: WBC 19.79, hemoglobin 13.8, hematocrit 41.8, platelets 247. Sodium 133, potassium 3.7, chloride 101, CO2 of 22, BUN 11, creatinine 1.03, estimated GFR greater than 60, glucose 148, calcium 8.9, phosphorus 2.0, magnesium 1.8. DIAGNOSTIC STUDIES: No new imaging studies. ASSESSMENT AND PLAN: 1. Acute abdominal pain, acute appendicitis with contained perforation, now status post laparoscopic appendectomy on 09/09, by Dr. Gordon. Continue pain control. Continue Zosyn, and normal saline IV fluids. T-max 100.0. WBC 19.79 (15.74), subjectively much improved. Await improvement in WBCs. 2. Hypothyroidism. TSH elevated at 12.79. Non-formulary Levoxyl switched to Synthroid, which has been increased from 150 mcg to 200 mcg daily. 3. Hydronephrosis, right kidney, creatinine 1.03 (1.2), improving. Continue to monitor renal function. 4. Acute hypomagnesemia. Magnesium 1.8 (1.6). Monitor. 5. Acute mild hypophosphatemia. Phosphorus 2.0 (2.6). Monitor. 6. Right bundle-branch block and left anterior fascicular block. Monitor telemetry. 7. Possible acute urinary tract infection, POA with hematuria. UA was positive for nitrites. Await final culture and sensitivity results. Continue IV fluids. 8. Prophylaxis. Protonix. Time spent 35 minutes. Billing code [id number]. Dictated by Jayden An, SENIOR BI ARCHITECT MD LORNE Huffman/VLADIMIRL /[id number]
[2019-09-13] MEDS: SODIUM CHLORIDE 0.9% 1000ML 1,000 ML IV SCH ×2 (03:11→16:43)
[2019-09-13] MEDS: LEVOTHYROXINE SODIUM 100 MCG TAB PO SCH (04:26)
[2019-09-13] MEDS: PIPER-TAZ 3.375 GM 50 ML IV SCH ×4 (05:02→23:40)
[2019-09-13 05:44] LABS: BASOPHILS % 0.3 % (0.0-1.0); EOSINOPHILS # (AUTO) 0.2 (0.0-0.4); EOSINOPHILS % 1.1 % (0.0-6.0); HEMATOCRIT 40.5 % (38.2-49.6); HEMOGLOBIN 13.4 g/dL (14.0-18.0); LYMPHOCYTES # (AUTO) 1.7 (1.0-3.2); LYMPHOCYTES % 11.4 % (18.0-39.1); MEAN CORPUSCULAR HEMOGLOBIN 31.8 pg (28-32); MEAN CORPUSCULAR HGB CONC 33.1 g/dL (31-35); MONOCYTES # (AUTO) 1.1 (0.2-0.8); MONOCYTES % 7.7 % (4.4-11.3); NEUTROPHILS # (AUTO) 11.7 (2.1-6.9); NEUTROPHILS % 78.9 % (38.7-80.0); PLATELET COUNT 271 x10e3/uL (140-360); RED BLOOD COUNT 4.22 x10e6/uL (4.3-5.7); RED CELL DISTRIBUTION WIDTH 13.5 % (11.7-14.4)
[2019-09-13 06:07] LABS: ALBUMIN 2.9 g/dL (3.5-5.0); ALBUMIN/GLOBULIN RATIO 0.7 (0.8-2.0); ANION GAP 15.8 mmol/L (8-16); CALCIUM 9.5 mg/dL (8.4-10.2); CREATININE, SERUM 1.25 mg/dL (0.72-1.25); MAGNESIUM 1.9 MG/DL (1.3-2.1); POTASSIUM 3.8 mmol/L (3.5-5.1)
--- NOTE | 2019-09-13 07:10 | NUR ---
RCD PT AT BED PT IS ALERT AND ORIENTED PT RESTING ON BED IV PATENT PT FEEL BETTER NO NAUSEA AND VOMITING BED LOW AND LOCKED CALL LIGHT IN REACH
[2019-09-13] MEDS: PANTOPRAZOLE SOD 40 MG TABEC PO SCH (07:30)
[2019-09-13] MEDS: DOCUSATE SODIUM 100 MG CAP PO SCH ×2 (09:00→16:43)
--- NOTE | 2019-09-13 10:00 | NUR ---
PT RESTING ON BED NO COMPLAINTS TOLERATED THE CLEAR LIQUID DIET ,CHANGED TO FULL LIQUID DIET
--- NOTE | 2019-09-13 18:42 | NUR ---
PT RESTING ON BED BED SIDE REPORT GIVEN TO ONCOMING NURSE
--- NOTE | 2019-09-13 21:30 | NUR ---
PATIENT IS IN STABLE CONDITION AOX4, NO SIGNS OF DISTRESS NOTED. IV FLUIDS ARE RUNNING AT ORDERED RATE AND PATIENT VOICES NO PAIN AT THIS TIME. PATIENT PREVIOUSLY AMBULATED UP AND DOWN THE HALLS SAFELY. PATIENT IS NOW RESTING COMFORTABLY IN RECLINER, CALL LIGHT IS WITHIN REACH, WILL CONTINUE TO MONITOR.
[2019-09-13] MEDS: ONDANSETRON HCL 4 MG ORAL DISINTEGRATING TAB PO PRN (23:30)
--- NOTE | 2019-09-13 23:40 | NUR ---
PATIENT VOMITED A MINIMAL AMOUNT OF GREEN BILE ON SHEETS, THEN VOMITED MORE IN RESTROOM. PATIENT VOICED THAT HE DID NOT FEEL RIGHT, NAUSEA MEDICINE WAS GIVEN. CALLED ADRIAN WHIZZER HAND AND STAT KUB WAS ORDERED CONTINUING TO MONITOR.
[2019-09-14] VITALS (8 sets, daily range): BP systolic 122–141; BP diastolic 77–88
--- NOTE | 2019-09-14 00:21 | Diagnostic Imaging Report ---
EXAM: Abdomen Radiograph 1 View(s) INDICATION: Abdominal pain COMPARISON: None FINDINGS: Few loops of mildly distended air filled small bowel measure up to 3.8 cm in maximum caliber. Stool within the right colon. No abnormal soft tissue calcification. No distinct free intraperitoneal air. Skin abilio. No acute osseous abnormality. IMPRESSION: Few loops of dilated air-filled small bowel. This likely reflects adynamic ileus given the patient's recent surgery. Continued follow-up is suggested. Signed by: Thony Muller MD on 09/14/2019 12:18 AM
--- NOTE | 2019-09-14 00:37 | NUR ---
SPOKE WITH ADRIAN ROBLES REGARDING THE PATIENT'S KUB RESULTS. ORDERED TO KEEP PATIENT NPO AND HAVE DR. YIN SEE HIM IN THE MORNING. PATIENT IS RESTING IN RECLINER, NO DISTRESS NOTED, CONTINUING TO MONITOR.
[2019-09-14] MEDS: MELATONIN 5 MG TABLET PO PRN ×2 (01:54→23:20)
[2019-09-14] MEDS: LEVOTHYROXINE SODIUM 100 MCG TAB PO SCH (04:56)
[2019-09-14] MEDS: PIPER-TAZ 3.375 GM 50 ML IV SCH ×4 (05:14→23:20)
[2019-09-14 05:38] LABS: BASOPHILS # (AUTO) 0.1 (0.0-0.1); BASOPHILS % 0.5 % (0.0-1.0); EOSINOPHILS # (AUTO) 0.4 (0.0-0.4); EOSINOPHILS % 3.7 % (0.0-6.0); HEMATOCRIT 40.4 % (38.2-49.6); HEMOGLOBIN 13.1 g/dL (14.0-18.0); LYMPHOCYTES # (AUTO) 2.3 (1.0-3.2); LYMPHOCYTES % 20.6 % (18.0-39.1); MEAN CORPUSCULAR HEMOGLOBIN 31.6 pg (28-32); MEAN CORPUSCULAR HGB CONC 32.4 g/dL (31-35); MEAN CORPUSCULAR VOLUME 97.3 fL (81-99); MONOCYTES # (AUTO) 0.8 (0.2-0.8); MONOCYTES % 7.4 % (4.4-11.3); NEUTROPHILS # (AUTO) 7.4 (2.1-6.9); NEUTROPHILS % 67.3 % (38.7-80.0); PLATELET COUNT 292 x10e3/uL (140-360); RED BLOOD COUNT 4.15 x10e6/uL (4.3-5.7); RED CELL DISTRIBUTION WIDTH 13.2 % (11.7-14.4)
[2019-09-14 06:01] LABS: ANION GAP 13.8 mmol/L (8-16); BLOOD UREA NITROGEN 17 mg/dL (7-26); BUN/CREATININE RATIO 15 (6-25); CALCIUM 8.9 mg/dL (8.4-10.2); CARBON DIOXIDE 23 mmol/L (22-29); CHLORIDE 106 mmol/L (98-107); CREATININE, SERUM 1.12 mg/dL (0.72-1.25); EST GLOMERULAR FILTRATION RATE > 60 ML/MIN (60-); GLUCOSE 103 mg/dL (74-118); MAGNESIUM 1.8 MG/DL (1.3-2.1); POTASSIUM 3.8 mmol/L (3.5-5.1); SODIUM 139 mmol/L (136-145)
--- NOTE | 2019-09-14 07:00 | NUR ---
RCD PT AT BED PT IS ALERT AND ORIENTED PT RESTING ON BED IV PATENT PT FEEL BETTER NO NAUSEA AND VOMITING DR YIN CAME TO SEE THE PT AND HE STARTED CLEAR LIQUID DIET BED LOW AND LOCKED CALL LIGHT IN REACH
[2019-09-14] MEDS: PANTOPRAZOLE SOD 40 MG TABEC PO SCH (07:30)
[2019-09-14] MEDS: DOCUSATE SODIUM 100 MG CAP PO SCH ×2 (08:53→17:00)
--- NOTE | 2019-09-14 10:00 | NUR ---
PT FEEL BETTER NO VOMITING HE HAD BOWEL MOVEMENT HE TOOK THE SHOWER AND HE WALKED HE IS TOLERATING CLEAR LIQUID DIET
[2019-09-14] MEDS: SODIUM CHLORIDE 0.9% 1000ML 1,000 ML IV SCH (14:24)
--- NOTE | 2019-09-14 18:44 | NUR ---
PT RESTING ON BED BED SIDE REPORT GIVEN TO ONCOMING NURSE
--- NOTE | 2019-09-14 20:55 | NUR ---
PATIENT IS RESTING IN STABLE CONDITION AOX4, NO SIGNS OF DISTRESS NOTED. IV FLUIDS ARE RUNNING AT ORDERED RATE AND PATIENT VOICES NO PAIN AT THIS TIME. PATIENT PREVIOUSLY AMBULATED UP AND DOWN THE HALLS SAFELY. PATIENT IS NOW RESTING COMFORTABLY IN RECLINER, VOICES NO SIGNS OF NAUSEA, CALL LIGHT IS WITHIN REACH, WILL CONTINUE TO MONITOR.
[2019-09-15] VITALS (7 sets, daily range): BP systolic 109–141; BP diastolic 71–85
[2019-09-15] MEDS: PIPER-TAZ 3.375 GM 50 ML IV SCH ×3 (05:14→17:00)
[2019-09-15 06:04] LABS: BASOPHILS # (AUTO) 0.1 (0.0-0.1); BASOPHILS % 0.5 % (0.0-1.0); EOSINOPHILS # (AUTO) 0.8 (0.0-0.4); HEMATOCRIT 38.1 % (38.2-49.6); HEMOGLOBIN 12.5 g/dL (14.0-18.0); MEAN CORPUSCULAR HEMOGLOBIN 32.1 pg (28-32); MEAN CORPUSCULAR HGB CONC 32.8 g/dL (31-35); MEAN CORPUSCULAR VOLUME 97.7 fL (81-99); MONOCYTES # (AUTO) 0.8 (0.2-0.8); MONOCYTES % 8.5 % (4.4-11.3); NEUTROPHILS # (AUTO) 5.8 (2.1-6.9); NEUTROPHILS % 61.3 % (38.7-80.0); PLATELET COUNT 260 x10e3/uL (140-360); RED CELL DISTRIBUTION WIDTH 13.2 % (11.7-14.4)
[2019-09-15 06:25] LABS: ANION GAP 12.7 mmol/L (8-16); BLOOD UREA NITROGEN 14 mg/dL (7-26); BUN/CREATININE RATIO 13 (6-25); CALCIUM 8.2 mg/dL (8.4-10.2); CARBON DIOXIDE 22 mmol/L (22-29); CHLORIDE 106 mmol/L (98-107); CREATININE, SERUM 1.09 mg/dL (0.72-1.25); EST GLOMERULAR FILTRATION RATE > 60 ML/MIN (60-); GLUCOSE 89 mg/dL (74-118); MAGNESIUM 1.7 MG/DL (1.3-2.1); POTASSIUM 3.7 mmol/L (3.5-5.1); SODIUM 137 mmol/L (136-145)
[2019-09-15] MEDS: LEVOTHYROXINE SODIUM 100 MCG TAB PO SCH (06:27)
--- NOTE | 2019-09-15 07:03 | NUR ---
BEDSIDE SHIFT REPORT RECEIVED FROM PM NURSE. PT SITTING UP IN CHAIR, NO SIGNS OF DISTRESS, REQUESTING COFFEE. PT DENIES ANY PAIN AT THIS TIME. WILL CONTINUE TO MONITOR.
[2019-09-15] MEDS: SODIUM CHLORIDE 0.9% 1000ML 1,000 ML IV SCH (08:13)
[2019-09-15] MEDS: DOCUSATE SODIUM 100 MG CAP PO SCH ×2 (08:18→17:00)
[2019-09-15] MEDS: PANTOPRAZOLE SOD 40 MG TABEC PO SCH (08:18)
--- NOTE | 2019-09-15 10:10 | NUR ---
Pt. expressed no spiritual or emotional concerns at this time. Pt's at bedside. Lead Quality Control Technician provided hospitality and information on how to reach chief supply chain officer, if needed. No need to follow at this time. ANT HORAN Lead Quality Control Technician Spiritual Care Department O: [phone]
[2019-09-15] MEDS ORDERED: TYLENOL WITH C1 EACH PO (11:06)
[2019-09-15] MEDS ORDERED: SYNTHROID100 MCG PO (11:06)
--- NOTE | 2019-09-15 13:23 | NUR ---
ryan Gordon; pt tolerated lunch well and states he had a few bites of soft food with full liquid diet. requesting if diet can be advanced and if pt can be discharged today. awaiting callback.
--- NOTE | 2019-09-15 13:28 | NUR ---
spoke with Dr. Gordon who states pt can be advanced to a regular diet; if he tolerates it, he can be discharged and needs to follow up with him in 1 week.
[2019-09-15] MEDS: ACETAMINOPHEN 325 MG TAB PO PRN (16:13)
--- NOTE | 2019-09-16 16:10 | Discharge Summary ---
ADMISSION DIAGNOSES: 1. Acute appendicitis with contained perforation. 2. Hypothyroidism. 3. Right hydronephrosis. 4. Possible urinary tract infection. DISCHARGE DIAGNOSES: 1. Acute appendicitis with contained perforation. 2. Hypothyroidism. 3. Right hydronephrosis. 4. Possible urinary tract infection. 5. Rule out urinary tract infection. 6. Ileus. HISTORY: The patient has a history of hypothyroidism. SURGICAL HISTORY: Bilateral wrist surgery for fractures of the wrist. FAMILY HISTORY: The patient's sister, niece, and mom have diabetes. SOCIAL HISTORY: Noncontributory. HOSPITAL COURSE: A 59-year-old male, admits with central abdominal pain, radiating to the right side, which increased in severity for 2 days. He was also having fever and chills, but denies nausea, vomiting, or diarrhea. On admission, CT of the abdomen and pelvis showed acute appendicitis, severe chronic right hydronephrosis with associated severe cortical thinning. The patient had a diagnostic laparoscopic appendectomy. The appendix was found to be perforated. The patient was started on Zosyn prior to surgery and continued throughout hospitalization. Followup KUB showed an ileus, so the patient's hospital stay was lengthened until he was able to tolerate p.o. His TSH was elevated, so his levothyroxine dose was increased. The patient will discharge home, now that he is tolerating a regular diet and having bowel movement. His pain is well controlled, so he will follow up with Dr. Gordon next week and primary care in 1 to 2 weeks. The patient and understand discharge instructions and agrees to plan. Vital signs stable. The patient afebrile. Dictated by Breana Reno NP MD ARCHANA Huffman/MODL /[id number]
== END 2019-09-15 18:56 | disposition home or self-care (01) | DRG 339 ==
LOC: ER 07:51 → ERHOLD 10:35 → MED/SURG 15:57 → OBSVTOIN 09-11 16:38
PROVIDERS: ADMIT Internal Medicine; ATTEND Internal Medicine
PROC: 0DTJ4ZZ Resection of Appendix, Percutaneous Endoscopic Approach (ICD-10-PCS; principal; 2019-09-10 14:06)
DX: K35.32 Acute appendicitis with perforation, localized peritonitis, and gangrene, without abscess (principal); N39.0 Urinary tract infection, site not specified; N13.30 Unspecified hydronephrosis; K56.7 Ileus, unspecified; N17.9 Acute kidney failure, unspecified; E03.9 Hypothyroidism, unspecified; I45.10 Unspecified right bundle-branch block; E83.42 Hypomagnesemia; E83.39 Other disorders of phosphorus metabolism
CPT/HCPCS: 36415; 71045; 74018; 74177; 80048; 80053; 80061; 81001; 82550; 82553; 83036; 83690; 83735; 84100; 84145; 84443; 84484; 85025; 85610; 85730; 87040; 87086; 88304; 93005; 99284; G0378; J0360; J1100; J1885; J2001; J2270; J2405; J2543; J3010; J3475; J7030; J7050; Q0162; Q9967

== ENCOUNTER → 2020-01-29 | Day surgery (SDC) | payer BC, OTHER ==
[2020-01-26 15:38] LABS: BASOPHILS # (AUTO) 0.1 (0.0-0.1); BASOPHILS % 0.7 % (0.0-1.0); EOSINOPHILS # (AUTO) 0.6 (0.0-0.4); EOSINOPHILS % 6.6 % (0.0-6.0); HEMATOCRIT 41.9 % (38.2-49.6); HEMOGLOBIN 13.8 g/dL (14.0-18.0); LYMPHOCYTES # (AUTO) 3.5 (1.0-3.2); LYMPHOCYTES % 41.9 % (18.0-39.1); MEAN CORPUSCULAR HEMOGLOBIN 31.4 pg (28-32); MEAN CORPUSCULAR HGB CONC 32.9 g/dL (31-35); MEAN CORPUSCULAR VOLUME 95.4 fL (81-99); MONOCYTES # (AUTO) 0.8 (0.2-0.8); MONOCYTES % 9.3 % (4.4-11.3); NEUTROPHILS # (AUTO) 3.5 (2.1-6.9); NEUTROPHILS % 41.3 % (38.7-80.0); PLATELET COUNT 231 x10e3/uL (140-360); RED BLOOD COUNT 4.39 x10e6/uL (4.3-5.7)
[~2020-01-29] MED LIST: ACETAMINOPHEN/CODEINE 300MG - 30MG TAB ONE; BUPIVACAINE HCL 0.5% INJ 30 ML VIAL INJ ONE; CEFAZOLIN SOD 1 GM/NS 50ML 100 ML IV ONE; DEXAMETHASONE SOD PHOS INJ 4 MG/ML VIAL ONE; FENTANYL CITRATE/PF 100MCG/2 ML INJ ONE; KETOROLAC TROMETHAMINE 30 MG/ML VIAL ONE; LEVOTHYROXINE112 MCG PO; LEVOXYL175 MCG; LIDOCAINE HCL 2% JELLY 5 ML TUBE ONE; LIDOCAINE HCL 2% LOCAL INJ 5 ML SDV VIAL INJ ONE; MIDAZOLAM HCL 2 MG/2 ML VIAL ONE; ONDANSETRON HCL INJ 2MG/ML 2ML 2 MG/ML VIAL ONE; PROPOFOL IV EMULSION 10 MG/ML 20 ML VIAL ONE; SEVOFLURANE INHAL SOLN 250 ML PEN BTL ONE; SYNTHROID100 MCG PO; TYLENOL WITH C1 EACH PO
[2020-01-29 09:46] VITALS: BP 155/92
--- NOTE | 2020-01-29 15:33 | Operative Report ---
DATE OF PROCEDURE: 01/29/2020 SURGEON: Cuco Gordon MD PREOPERATIVE DIAGNOSIS: Left inguinal hernia. POSTOPERATIVE DIAGNOSIS: Left inguinal hernia. PROCEDURE: Repair of left inguinal hernia with mesh and excision of lipoma of spermatic cord. LANDSCAPE ARCHITECT AND PLANNER: None. ANESTHESIA: General. INDICATIONS AND FINDINGS: The patient is a 59-year-old male presenting complaints of a bulge in the left groin. At surgery, the patient was found to have a large lipoma of spermatic cord which was excised as well as an indirect left inguinal hernia. TECHNIQUE: After adequate general anesthesia with the patient in supine position, the left groin area was prepped and draped in a sterile fashion with ChloraPrep solution. Transverse incision was made in the left inguinal area, carried down through subcutaneous tissue and Preethi's fascia until the external oblique fascia was seen. This was opened in direction of fibers through the external ring. The ilioinguinal nerve was identified and preserved. The spermatic cord was dissected free from the floor of the inguinal canal. There was no evidence of a direct hernia. The cremasteric fibers were opened. There was a large lipoma associated with spermatic cord which was dissected free from the spermatic cord up to the internal ring and then removed with the neck ligated with 2-0 Vicryl. There was an indirect hernia sac which was dissected free from the spermatic cord all way up to the internal ring, then reduced through the internal ring. A large Prolene mesh hernia system which had been soaked in antibiotic solution was placed through the internal ring with the underlay patch opened up in the preperitoneal space. Onlay patch was laid over the floor of the inguinal canal. The keyhole opening created to allow exit of the spermatic cord. The onlay patch was sutured to the shelving edge of inguinal ligament laterally and conjoint tendon medially. This was done with interrupted sutures of 0 Prolene. Care was taken not to entrap the general femoral or iliohypogastric nerves. Once the mesh was in place, the spermatic cord and ilioinguinal nerve returned to their normal positions. The wound was inspected for hemostasis which was seen to be adequate. The wound was then infiltrated with 0.5% Marcaine. The external oblique fascia was closed with running suture of 2-0 Vicryl. Care was taken not to entrap the spermatic cord or ilioinguinal nerve. Preethi's fascia was closed with running suture of 3-0 Vicryl. Skin was closed with a running subcuticular suture of 4-0 Vicryl. Dermabond and sterile dressing were applied. The patient tolerated the procedure well. Estimated blood loss was less than 5 mL. There were no complications. All counts were correct. The patient was taken to the recovery room in satisfactory condition. MD JIMMY Raman/DE /[id number]
== END | disposition home or self-care (01) ==
LOC: OR 05:31
PROVIDERS: ATTEND Surgery
DX: K40.90 Unilateral inguinal hernia, without obstruction or gangrene, not specified as recurrent (principal); D17.6 Benign lipomatous neoplasm of spermatic cord; E03.9 Hypothyroidism, unspecified; J45.909 Unspecified asthma, uncomplicated; Z01.810 Encounter for preprocedural cardiovascular examination; Z01.812 Encounter for preprocedural laboratory examination; Z11.59 Encounter for screening for other viral diseases
CPT/HCPCS: 36415; 49505; 85025; 88304; 93005; C1781; J0690; J1100; J1885; J2001 ×2; J2250; J2405; J2704; J3010; U0002